=== PATIENT | female | born 1950 | race Caucasian/White ===

== ENCOUNTER 2022-04-24 08:36 | Inpatient (IN) ==
[2022-04-24] MEDS ORDERED: SODIUM CHLORIDE 0.9% 500 ML IV STA (08:48)
[2022-04-24] MEDS ORDERED: ALBUT/IPRATROP 3MG/0.5MG NEB 3 ML VIAL NEB ONE (08:48)
[2022-04-24] MEDS ORDERED: methylPREDNISolone 125 MG/2 ML VIAL IV STA (08:48)
--- NOTE | 2022-04-24 08:54 | Emergency Department Note ---
Impression & Plan COPD (chronic obstructive pulmonary disease), Acute respiratory acidosis ED Provider Note NAME: LARRY HARKINS AGE: 71 SEX: F : 1950 ARRIVES VIA: Walk-In INFORMANT: Patient, ED PROVIDER(S): Giovanni Murphy DO CHIEF COMPLAINT: Shortness of breath HPI: The patient is a 71-year-old female who has a history of COPD who presented to the emergency department for an evaluation of shortness of breath. The patient has been noticing increasing shortness of breath over the course of the last few days. She does have a history of COPD and states this feels similar to her previous COPD exacerbations. She does note that she has a cough but is nonproductive. She denies having any fever or chest pain. She denies having any orthopnea or lower extremity swelling. The patient has been taking her nebulizer treatments. This morning she took a longer than usual nebulizer treatment. She does take oral steroids chronically. She does admit to having some tobacco use recently but very little. She is often seen by her primary care physician for the symptoms. She has been using oxygen at home as normal and wears 2.5 L. She has had no recent trauma. She denies having any hemoptysis. She states symptoms are significantly worsened with any exertion. ROS: See above HPI for pertinent positives & negatives. A total of 10 systems reviewed and were otherwise negative. PAST MEDICAL HISTORY: See Below PAST SURGICAL HISTORY: See Below FAMILY HISTORY: See Below SOCIAL HISTORY: See Below HOME MEDICATIONS: See Below ALLERGIES: See Below VITALS: See Below PHYSICAL EXAMINATION: GENERAL: The patient is awake and alert. She is somewhat anxious appearing. EYES: The conjunctivae are clear. The pupils are round and reactive. EARS, NOSE, MOUTH AND THROAT: The nose is without any evidence of any deformity. NECK: The neck is nontender and supple. RESPIRATORY: Diminished breath sounds were noted throughout. Expiratory wheezing was noted in both upper lung st[place]. There is significant convers ational dyspnea as well as tachypnea. CARDIOVASCULAR: Regular rate and rhythm noted there no murmurs rubs or gallops normal S1 normal S2. GASTROINTESTINAL: The abdomen is soft. Abdomen is nontender. MUSCULOSKELETAL/EXTREMITIES: There is no evidence of gross deformity full range of motion is noted in the hips and shoulders. SKIN: There is no obvious evidence of any rash. There are no petechiae, pallor or cyanosis noted. NEUROLOGIC: Patient is awake alert and oriented x3 MEDICAL DECISION MAKING: The patient is a 71-year-old male who presented to the emergency department for an evaluation of shortness of breath. The patient is a history of COPD. Her history and physical exam appear to be consistent with a COPD exacerbation. The patient had very significant conversational dyspnea as well as tachypnea. She was treated with IV steroids and an hour-long nebulizer. Her symptoms significantly improved at rest but any exertion would make her severely short of breath. The patient does wear oxygen normally at home. She was reevaluated multiple times. I discussed her case with the on-call [facility] group. They have agreed to evaluate the patient in the emergency department for further management and disposition. Triage Nursing notes reviewed. Prior medical records reviewed Vital Signs: reviewed and remarkable for tachycardia. Differential diagnosis: Reactive airway disease, pneumonia, pneumothorax, COPD, CHF, infections, ca rdiac ischemia, pulmonary embolism, musculoskeletal, gastrointestinal, as well as other pathologies. ER treatment provided: See below Diagnostics interpreted by me: ECG: EKG was obtained in the emergency department. My interpretation is sinus rhythm at 96 bpm. PVCs were noted. No acute ST segment abnormalities were noted. This was compared to a tracing from February 14, 2022. The ectopy is new otherwise no significant changes were noted. Cardiac Monitoring: An order was placed for continuous cardiac monitoring. The monitor shows a rate of 122 bpm with sinus tachycardia. Laboratory studies: As stated above and show below. Imaging studies: See below Consultation(s): I discussed this case with Eliza who is on for the [facility] group. ED COURSE: Procedures: none Critical Care: I have personally spent greater than 45 minutes of critical care time in the direct management of this patient. This includes bedside care, interpretation of diagnostic studies, and testing, discussion with consultants, patient, and family members, and other required patient management activities. This 45 minutes is in excess of all separately billable procedures. Past Med/Surg History Medical History Blindness Chronic respiratory failure with hypoxia COPD (chronic obstructive pulmonary disease) Depression with anxiety History of tobacco use HTN (hypertension) Surgical History H/O tubal ligation History of cholecystectomy Family History Mother Coronary heart disease Depression Social History Smoking Status: Former smoker Tobacco Type: Cigarettes Hx Alcohol Use: No Hx Substance Use: No Preferred Language: Icelandic Communication Ability: Effective Crime Scene Analyst Required: No Beliefs That Will Affect Care: None Current Living Situation: Personal Care Facility Current Living Situation Comment: Assisted living Feels Safe at Home: Yes Assistive Devices: Hospital Bed, Oxygen - Continuous and Wheelchair Allergies Allergies Allergy/AdvReac Type Severity Reaction Status Date / Time kiwi Allergy Unknown Anaphylaxis Verified 04/24/22 10:08 Penicillins Allergy Unknown Anaphylaxis Verified 04/24/22 10:08 moxifloxacin Allergy dyspnea Verified 04/24/22 10:08 amlodipine AdvReac Unknown Muscle Pain Verified 04/24/22 10:08 furosemide [From Lasix] AdvReac Cramping Verified 04/24/22 10:08 of the Muscles lisinopril AdvReac Unknown Verified 04/24/22 10:08 propylene glycol AdvReac Rash Verified 04/24/22 10:08 [id number] Reductase AdvReac Muscle Pain Verified 04/24/22 10:08 Inhibitor Home Meds Home Medications Medication Instructions Recorded Confirmed albuterol sulfate 90 mcg/actuation 2 puff inhalation QID PRN 02/14/22 02/14/22 aerosol inhaler (Ventolin HFA) Shortness Of Breath Or Wheezing alprazolam 0.5 mg tablet 0.5 mg PO HS 02/14/22 02/14/22 alprazolam 0.5 mg tablet 0.5 mg PO QID PRN Anxiety 02/14/22 02/14/22 azithromycin 250 mg tablet 250 mg PO MOWEFR 02/14/22 02/14/22 budesonide 1 mg/2 mL suspension 1 mg inhalation BID 02/14/22 02/14/22 for nebulization docusate sodium 100 mg capsule 100 mg PO BID 02/14/22 02/14/22 (Colace) doxazosin 2 mg tablet 2 mg PO PM 02/14/22 02/14/22 fexofenadine 180 mg tablet 180 mg PO DAILY 02/14/22 02/14/22 ipratropium 20 mcg-albuterol 100 1 puff inhalation Q4H PRN 02/14/22 02/14/22 mcg/actuation mist for inhalation Shortness Of Breath Or Wheezing (Combivent Respimat) losartan 100 mg tablet 100 mg PO DAILY 02/14/22 02/14/22 montelukast 10 mg tablet 10 mg PO HS 02/14/22 02/14/22 nicotine 14 mg/24 hr daily 14 mg transdermal DAILY 02/14/22 02/14/22 transdermal patch sennosides 8.6 mg-docusate sodium 1 tab PO DAILY PRN Constipation 02/14/22 02/14/22 50 mg tablet (Senna Plus) Previous Rx's Medication Instructions Recorded ipratropium 0.5 mg-albuterol 3 mg 3 ml inhalation QID PRN sob, 02/20/22 (2.5 mg base)/3 mL nebulization wheezing #90 mL soln prednisone 10 mg tablet See Rx Instructions .Route 02/20/22 .COMPLEX 8 days #15 tabs umeclidinium 62.5 mcg-vilanterol 1 inh inhalation DAILY #60 ea 02/20/22 25 mcg/actuation powdr for inhalation (Anoro Ellipta) Results & Data (ED) Vital Signs Vital Signs - 24 hr 04/24/22 08:38 04/24/22 08:57 04/24/22 08:36 Temperature 36.7 C Temperature Source Temporal Artery Scan Pulse Rate 102 H Pulse Rate [Apical] 94 H Pulse Rate from SpO2 Sensor Respiratory Rate 24 22 Respiratory Effort / Characteristics Spontaneous Short of Breath Respiratory Depth Respiratory Pattern Blood Pressure 156/90 H Blood Pressure Mean 112 Pulse Oximetry 98 97 97 Oxygen Delivery Method Nasal Cannula Nasal Cannula Nasal Cannula Oxygen Flow Rate 2.5 2 4 Sepsis Recent Fever Within 48 Hours No Sepsis New/Unexplained Change in Mental Status N/A Sepsis Action Taken by Nursing No Action Required 04/24/22 09:19 04/24/22 08:51 04/24/22 08:53 Temperature Temperature Source Pulse Rate 95 H Pulse Rate [Apical] Pulse Rate from SpO2 Sensor 97 H Respiratory Rate 23 Respiratory Effort / Characteristics Spontaneous Labored Short of Breath SOB on Exertion Respiratory Depth Retractive Respiratory Pattern Tachypnea Blood Pressure 151/104 H Blood Pressure Mean 119 Pulse Oximetry 98 Oxygen Delivery Method Oxygen Flow Rate Sepsis Recent Fever Within 48 Hours Sepsis New/Unexplained Change in Mental Status Sepsis Action Taken by Nursing 04/24/22 08:53 04/24/22 09:00 04/24/22 09:30 Temperature Temperature Source Pulse Rate 95 H 94 H 93 H Pulse Rate [Apical] Pulse Rate from SpO2 Sensor 95 H 92 H 92 H Respiratory Rate 28 H 18 18 Respiratory Effort / Characteristics Respiratory Depth Respiratory Pattern Blood Pressure Blood Pressure Mean Pulse Oximetry 98 99 100 Oxygen Delivery Method Oxygen Flow Rate Sepsis Recent Fever Within 48 Hours Sepsis New/Unexplained Change in Mental Status Sepsis Action Taken by Nursing 04/24/22 09:46 04/24/22 09:46 04/24/22 10:00 Temperature Temperature Source Pulse Rate 93 H Pulse Rate [Apical] Pulse Rate from SpO2 Sensor 95 H Respiratory Rate 21 Respiratory Effort / Characteristics Respiratory Depth Respiratory Pattern Blood Pressure 159/76 H 155/86 H Blood Pressure Mean 103 109 Pulse Oximetry 100 Oxygen Delivery Method Oxygen Flow Rate Sepsis Recent Fever Within 48 Hours Sepsis New/Unexplained Change in Mental Status Sepsis Action Taken by Nursing 04/24/22 10:00 04/24/22 10:30 04/24/22 10:30 Temperature Temperature Source Pulse Rate 91 H 100 H Pulse Rate [Apical] Pulse Rate from SpO2 Sensor 99 H 100 H Respiratory Rate 21 19 Respiratory Effort / Characteristics Respiratory Depth Respiratory Pattern Blood Pressure 174/78 H Blood Pressure Mean 110 Pulse Oximetry 100 95 Oxygen Delivery Method Oxygen Flow Rate Sepsis Recent Fever Within 48 Hours Sepsis New/Unexplained Change in Mental Status Sepsis Action Taken by Nursing 04/24/22 11:00 04/24/22 12:00 04/24/22 13:00 Temperature Temperature Source Pulse Rate 95 H 111 H 112 H Pulse Rate [Apical] Pulse Rate from SpO2 Sensor 103 H 112 H 113 H Respiratory Rate 20 21 22 Respiratory Effort / Characteristics Respiratory Depth Respiratory Pattern Blood Pressure 136/92 Blood Pressure Mean 106 Pulse Oximetry 96 96 95 Oxygen Delivery Method Oxygen Flow Rate Sepsis Recent Fever Within 48 Hours Sepsis New/Unexplained Change in Mental Status Sepsis Action Taken by Nursing 04/24/22 14:00 Temperature Temperature Source Pulse Rate 122 H Pulse Rate [Apical] Pulse Rate from SpO2 Sensor Respiratory Rate 20 Respiratory Effort / Characteristics Respiratory Depth Respiratory Pattern Blood Pressure Blood Pressure Mean Pulse Oximetry Oxygen Delivery Method Oxygen Flow Rate Sepsis Recent Fever Within 48 Hours Sepsis New/Unexplained Change in Mental Status Sepsis Action Taken by Group Home Medications Current Medication List: was personally reviewed by me Laboratory Data Attestation: I reviewed the patient's lab results. Result diagrams: 04/24/22 09:00 04/24/22 09:00 Lab Results 04/24/22 04/24/22 04/24/22 Range/Units 09:00 09:00 09:00 WBC 9.62 (4.8-10.8) K/ul RBC 4.44 (3.93-5.22) M/uL Hgb 13.9 (12.0-16.0) g/dl Hct 41.4 (34.1-44.9) % MCV 93.2 (80.0-100.0) fL MCH 31.3 (25.0-34.0) pg MCHC 33.6 (32.0-36.0) g/dL RDW Std Deviation 44.1 (36.4-46.3) fL RDW Coeff of Carl 12.9 (11.5-14.5) % Plt Count 315 (130-400) K/uL MPV 9.7 (9.4-12.3) fL Immature Gran % (Auto) 0.4 % Neut % (Auto) 83.3 % Lymph % (Auto) 10.2 % [place] % (Auto) 4.7 % Eos % (Auto) 0.9 % Baso % (Auto) 0.5 % Neut # (Auto) 8.01 H (1.4-6.5) K/uL Lymph # (Auto) 0.98 L (1.2-3.4) K/uL [place] # (Auto) 0.45 (0.24-0.82) K/uL Eos # (Auto) 0.09 (0-0.50) K/uL Baso # (Auto) 0.05 (0-0.2) K/uL Immature Gran # (Auto) 0.04 H (0.00-0.02) K/uL PT 10.4 (9.0-12.0) Seconds INR 1.0 (0.9-1.1) APTT 24.0 (21.0-31.0) Seconds PTT Ratio 0.9 VBG pH (7.36-7.41) VBG pCO2 (38-50) mmHg VBG pO2 mmHg VBG HCO3 mmol/L VBG O2 Saturation % VBG Base Excess mEq/L Sodium 137 (136-145) mmol/L Potassium 3.7 (3.5-5.1) mmol/L Chloride 101 (98-107) mmol/L Carbon Dioxide 29 (21-32) mmol/L Anion Gap 7 (3-11) BUN 11 (6-23) mg/dl Creatinine 0.58 L (0.6-1.2) mg/dl Est Cr Clr Drug Dosing Not Reportable Est GFR ( Amer) 109.0 ml/min Est GFR (Non-Af Amer) 94.0 ml/min BUN/Creatinine Ratio 19.0 (10-20) Glucose 116 H (70-99(Fasting)) mg/dl Calcium 8.9 (8.5-10.1) mg/dl Magnesium 2.2 (1.7-2.4) mg/dl Total Bilirubin 0.4 (0.2-1.0) mg/dl AST 16 (13-39) U/L ALT 15 (7-52) U/L Alkaline Phosphatase 57 (34-104) U/L Troponin I High Sens 4.9 (0-14) pg/ml Total Protein 7.2 (6.0-8.3) gm/dl Albumin 4.3 (3.4-5.0) gm/dl Globulin 2.9 (2.5-4.0) gm/dl Albumin/Globulin Ratio 1.5 (0.9-2) Urine Color Urine Appearance (Clear) Urine pH (4.5-7.5) Ur Specific [place] (1.000-1.030) Urine Protein (Negative) Urine Glucose (UA) (Negative) Urine Ketones (Negative) Urine Blood (Negative) Urine Nitrite (Negative) Urine Bilirubin (Negative) Urine Urobilinogen (Negative) Ur Leukocyte Esterase (Negative) SARS-CoV-2 (PCR) (Negative) Influenza Type A (PCR) (Neg) Influenza Type B (PCR) (Neg) RSV (RT-PCR) (Neg) 04/24/22 04/24/22 04/24/22 Range/Units 09:00 09:36 10:01 WBC (4.8-10.8) K/ul RBC (3.93-5.22) M/uL Hgb (12.0-16.0) g/dl Hct (34.1-44.9) % MCV (80.0-100.0) fL MCH (25.0-34.0) pg MCHC (32.0-36.0) g/dL RDW Std Deviation (36.4-46.3) fL RDW Coeff of Carl (11.5-14.5) % Plt Count (130-400) K/uL MPV (9.4-12.3) fL Immature Gran % (Auto) % Neut % (Auto) % Lymph % (Auto) % [place] % (Auto) % Eos % (Auto) % Baso % (Auto) % Neut # (Auto) (1.4-6.5) K/uL Lymph # (Auto) (1.2-3.4) K/uL [place] # (Auto) (0.24-0.82) K/uL Eos # (Auto) (0-0.50) K/uL Baso # (Auto) (0-0.2) K/uL Immature Gran # (Auto) (0.00-0.02) K/uL PT (9.0-12.0) Seconds INR (0.9-1.1) APTT (21.0-31.0) Seconds PTT Ratio VBG pH 7.32 L (7.36-7.41) VBG pCO2 62 H (38-50) mmHg VBG pO2 40 mmHg VBG HCO3 32 mmol/L VBG O2 Saturation 64.5 % VBG Base Excess 4.0 mEq/L Sodium (136-145) mmol/L Potassium (3.5-5.1) mmol/L Chloride (98-107) mmol/L Carbon Dioxide (21-32) mmol/L Anion Gap (3-11) BUN (6-23) mg/dl Creatinine (0.6-1.2) mg/dl Est Cr Clr Drug Dosing Est GFR ( Amer) ml/min Est GFR (Non-Af Amer) ml/min BUN/Creatinine Ratio (10-20) Glucose (70-99(Fasting)) mg/dl Calcium (8.5-10.1) mg/dl Magnesium (1.7-2.4) mg/dl Total Bilirubin (0.2-1.0) mg/dl AST (13-39) U/L ALT (7-52) U/L Alkaline Phosphatase (34-104) U/L Troponin I High Sens (0-14) pg/ml Total Protein (6.0-8.3) gm/dl Albumin (3.4-5.0) gm/dl Globulin (2.5-4.0) gm/dl Albumin/Globulin Ratio (0.9-2) Urine Color Yellow Urine Appearance Clear (Clear) Urine pH 6.5 (4.5-7.5) Ur Specific [place] 1.006 (1.000-1.030) Urine Protein Negative (Negative) Urine Glucose (UA) Negative (Negative) Urine Ketones Negative (Negative) Urine Blood Negative (Negative) Urine Nitrite Negative (Negative) Urine Bilirubin Negative (Negative) Urine Urobilinogen Negative (Negative) Ur Leukocyte Esterase Negative (Negative) SARS-CoV-2 (PCR) NEGATIVE (Negative) Influenza Type A (PCR) Negative (Neg) Influenza Type B (PCR) Negative (Neg) RSV (RT-PCR) Negative (Neg) Administered Medications Discontinued Medications Albuterol (Albut/Ipratrop 3mg/0.5mg Neb 3 Ml Vial) 12 ml NEB ONE ONE; Protocol Stop: 04/24/22 08:49 Last Admin: 04/24/22 08:56 Dose: 12 ml Documented By: EM Sodium Chloride (Nss) 500 mls @ 999 mls/hr IV .Q31M STA Stop: 04/24/22 09:18 Last Infusion: 04/24/22 09:32 Dose: 0 mls/hr Documented By: Admin: 04/24/22 09:01 Dose: 999 mls/hr Documented By: HS Levalbuterol HCl (Levalbuterol 1.25mg/0.5ml Neb) Confirm Administered Dose 1.25 mg .ROUTE .STK-MED ONE Stop: 04/24/22 14:08 Last Admin: 04/24/22 14:13 Dose: 1.25 mg Documented By: RDD Methylprednisolone (Methylprednisolone 125 Mg/2 Ml Vial) 125 mg IV NOW STA Stop: 04/24/22 08:49 Last Admin: 04/24/22 09:01 Dose: 125 mg Documented By: HS Imaging Data Radiologist's Impression: Chest X-Ray 04/24/22 08:48 XR chest 1V portable HISTORY: Dyspnea COMPARISON: Chest 02/14/2022. FINDINGS: No pneumothorax. No pleural effusions. The cardiac silhouette remains borderline enlarged. There is mild bibasilar interstitial thickening. The upper lung zones appear clear. No evidence for pulmonary edema. There appears be mild emphysema. IMPRESSION: Mild bibasilar interstitial thickening which is similar to the prior study. This could be chronic or represent a low-grade interstitial pneumonitis. ACT 112: Negative or not required by law. Electronically signed by: Yunier Alves M.D. 04/24/2022 9:28 AM Discharge Plan Visit Data Chief Complaint: Shortness of Breath/Dyspnea Stated Complaint: TROUBLE BREATHING ED Provider: Giovanni Murphy Discharge Problem: COPD (chronic obstructive pulmonary disease), Acute respiratory acidosis Patient Disposition: Being Evaluated by Hospitalist Forms Stand Alone Forms: My [facility] [employer] Prescriptions Prescriptions: No Action nicotine 14 mg/24 hr patch 24 hour 14 mg transdermal DAILY azithromycin 250 mg tablet 250 mg PO MOWEFR sennosides-docusate sodium [Senna Plus] 8.6-50 mg tablet 1 tab PO DAILY PRN (Reason: Constipation) alprazolam 0.5 mg tablet 0.5 mg PO QID PRN (Reason: Anxiety) alprazolam 0.5 mg tablet 0.5 mg PO HS docusate sodium [Colace] 100 mg capsule 100 mg PO BID montelukast 10 mg tablet 10 mg PO HS albuterol sulfate [Ventolin HFA] 90 mcg/actuation HFA aerosol inhaler 2 puff INHALATION QID PRN (Reason: Shortness Of Breath Or Wheezing) losartan 100 mg tablet 100 mg PO DAILY doxazosin 2 mg tablet 2 mg PO PM budesonide 1 mg/2 mL suspension for nebulization 1 mg inhalation BID Combivent Respimat 20-100 mcg/actuation mist 1 puff INHALATION Q4H PRN (Reason: Shortness Of Breath Or Wheezing) fexofenadine 180 mg Tablet 180 mg PO DAILY Anoro Ellipta 62.5-25 mcg/actuation blister with device 1 inh inhalation DAILY Qty: 60 0RF prednisone 10 mg tablet See Rx Instructions .ROUTE .COMPLEX 8 Days Qty: 15 0RF Rx Instructions: 40 mg daily x 2 days, then 20 mg daily x 3 days, then 10 mg daily x 3 days, then stop ipratropium-albuterol 0.5 mg-3 mg(2.5 mg base)/3 mL solution for nebulization 3 ml INHALATION QID PRN (Reason: sob, wheezing) Qty: 90 0RF [facility]errals [facility] -
[2022-04-24 09:12] LABS: Basophils # (auto) 0.05 K/uL (0-0.2); Basophils % (auto) 0.5 %; Eosinophils # (auto) 0.09 K/uL (0-0.50); Eosinophils % (auto) 0.9 %; Hematocrit (blood only) 41.4 % (34.1-44.9); Hemoglobin 13.9 g/dl (12.0-16.0); Immature Granulocytes # (auto) 0.04 K/uL (0.00-0.02); Immature Granulocytes % (auto) 0.4 %; Lymphocytes # (auto) 0.98 K/uL (1.2-3.4); Lymphocytes % (auto) 10.2 %; Mean Corpuscular Hemoglobin 31.3 pg (25.0-34.0); Mean Corpuscular Hgb Conc 33.6 g/dL (32.0-36.0); Mean Corpuscular Volume 93.2 fL (80.0-100.0); Mean Platelet Volume 9.7 fL (9.4-12.3); Monocytes # (auto) 0.45 K/uL (0.24-0.82); Monocytes % (auto) 4.7 %; Neutrophils # (auto) 8.01 K/uL (1.4-6.5); Neutrophils % (auto) 83.3 %; Platelet Count 315 K/uL (130-400); RDW Coefficient of Variation 12.9 % (11.5-14.5); RDW Standard Deviation 44.1 fL (36.4-46.3); Red Blood Count 4.44 M/uL (3.93-5.22); White Blood Count 9.62 K/ul (4.8-10.8)
[2022-04-24 09:23] LABS: Partial Thromboplastin Ratio 0.9; Prothrombin Time 10.4 Seconds (9.0-12.0)
--- NOTE | 2022-04-24 09:30 | XRay Report ---
XR chest 1V portable HISTORY: Dyspnea COMPARISON: Chest 02/14/2022. FINDINGS: No pneumothorax. No pleural effusions. The cardiac silhouette remains borderline enlarged. There is mild bibasilar interstitial thickening. The upper lung zones appear clear. No evidence for p ulmonary edema. There appears be mild emphysema. IMPRESSION: Mild bibasilar interstitial thickening which is similar to the prior study. This could be chronic or represent a low-grade interstitial pneumonitis. ACT 112: Negative or not required by law. Electronically signed by: Yunier Alves M.D. 04/24/2022 9:28 AM
[2022-04-24 09:36] LABS: Alanine Aminotransferase 15 U/L (7-52); Albumin Globulin Ratio 1.5 (0.9-2); Albumin Level 4.3 gm/dl (3.4-5.0); Alkaline Phosphatase 57 U/L (34-104); Anion Gap 7 (3-11); Aspartate Aminotransferase 16 U/L (13-39); Bilirubin,Total 0.4 mg/dl (0.2-1.0); Blood Urea Nitrogen 11 mg/dl (6-23); Calcium 8.9 mg/dl (8.5-10.1); Carbon Dioxide 29 mmol/L (21-32); Chloride 101 mmol/L (98-107); Globulin 2.9 gm/dl (2.5-4.0); Glucose 116 mg/dl (70-99(Fasting)); Magnesium 2.2 mg/dl (1.7-2.4); Potassium 3.7 mmol/L (3.5-5.1); Sodium 137 mmol/L (136-145); Total Protein 7.2 gm/dl (6.0-8.3)
[2022-04-24 09:40] LABS: Troponin I High Sensitivity 4.9 pg/ml (0-14)
[2022-04-24 10:05] LABS: HCO3 VBG 32 mmol/L; Oxygen Saturation VBG 64.5 %; PCO2 VBG 62 mmHg (38-50); PO2 VBG 40 mmHg; pH VBG 7.32 (7.36-7.41)
[2022-04-24 10:08] LABS: Influenza A virus by PCR Negative (Neg); Influenza B virus by PCR Negative (Neg); RSV by PCR Negative (Neg); SARS CoV2 RNA(COVID-19) InHosp NEGATIVE (Negative)
[2022-04-24 10:22] LABS: Appearance Urine Clear (Clear); Bilirubin Urine Negative (Negative); Blood Urine Negative (Negative); Color Urine Yellow; Glucose Urine UA Negative (Negative); Ketones Urine Negative (Negative); Leukocyte Esterase Urine Negative (Negative); Nitrite Urine Negative (Negative); Protein Urine Negative (Negative); Specific Gravity Urine 1.006 (1.000-1.030); Urobilinogen Urine Negative (Negative); pH Urine 6.5 (4.5-7.5)
[2022-04-24] MEDS ORDERED: ACETAMINOPHEN 325 MG TAB PO PRN (12:19)
--- NOTE | 2022-04-24 12:25 | History & Physical Report ---
Date of Service April 24, 2022 Assessment & Plan (1) Chronic respiratory failure with hypoxia: (2) COPD (chronic obstructive pulmonary disease): (3) Acute exacerbation of chronic obstructive airways disease: Plan: Hx of severe COPD last hospitalization in January 2022 Since then did not follow up w/ pulmonary medicine At baseline - 2.5L of oxygen, and currently also on 2.5 L- however she feels short of breath for past week COVID-19, influenza AB, RSVnegative Patient had 2 COVID-19 vaccinations, no booster Using prednisone 10 mg daily, azithromycin 3 times a week, Anoro, budesonide neb twice a day Hold p.o. prednisone, and continue with Solu-Medrol IV 40 twice daily Continue other home meds as above, add levalbuterol as needed Follow-up procalcitonin If not improved, consider pulmonary medicine consult (4) HTN (hypertension): Plan: cont. home losartan, doxazosin -monitor BP Code: DNR/DNI - discussed w/ the pt at the bedside. She would like bipap if she needed it. History of Present Illness Chief Complaint: shortness of breath Primary Care Provider: [facility] Pt is 71-year-old F with severe COPD, asthma, chronic hypoxic respiratory failure (on 2.5L at baseline), HTN, prior tobacco who presents with increased shortness of breath for the past week. Patient was most recently hospitalized here in January, at that time she was also seen by pulmonary medicine, required BiPAP on admission. She was supposed to follow-up with pulmonary medicine however patient [facility], only sees primary care provider at her facility, Annabel Calvert. She states that for the past week, her medications were not helping and she felt more short of breath. She developed occasional cough with clear/white sputum. Denies any fevers chills chest pain. Also denies any abdominal pain, nausea or vomiting. In the ED chest x-ray was obtained, and showed Mild bibasilar interstitial thickening which is similar to the prior study. She received 125 mg of Solu- Medrol, DuoNebs in the ED. Currently she is sitting up in bed, in no acute distress, answering questions appropriately, on 2.5 L of supplemental oxygen. Reports feeling slightly better. In the past she was also on hospice for a very short amount of time, however since then she recovered. Currently residing at [facility]. She is using budesonide neb twice a day, Anoro, she is on prednisone 10 mg daily, and chronic azithromycin 3 times a week.Previously had followed up with pulmonology at [facility], she has not been seen there in a while. She reports having difficulty getting follow-up appointments. Allergies Allergy/AdvReac Type Severity Reaction Status Date / Time kiwi Allergy Unknown Anaphylaxis Verified 04/24/22 10:08 Penicillins Allergy Unknown Anaphylaxis Verified 04/24/22 10:08 moxifloxacin Allergy dyspnea Verified 04/24/22 10:08 amlodipine AdvReac Unknown Muscle Pain Verified 04/24/22 10:08 furosemide [From Lasix] AdvReac Cramping Verified 04/24/22 10:08 of the Muscles lisinopril AdvReac Unknown Verified 04/24/22 10:08 propylene glycol AdvReac Rash Verified 04/24/22 10:08 [id number] Reductase AdvReac Muscle Pain Verified 04/24/22 10:08 Inhibitor Home Medications Medication Instructions Recorded Confirmed Type albuterol sulfate 90 mcg/actuation 2 puff inhalation QID PRN 02/14/22 02/14/22 History aerosol inhaler (Ventolin HFA) Shortness Of Breath Or Wheezing alprazolam 0.5 mg tablet 0.5 mg PO HS 02/14/22 02/14/22 History alprazolam 0.5 mg tablet 0.5 mg PO QID PRN Anxiety 02/14/22 02/14/22 History azithromycin 250 mg tablet 250 mg PO MOWEFR 02/14/22 02/14/22 History budesonide 1 mg/2 mL suspension 1 mg inhalation BID 02/14/22 02/14/22 History for nebulization docusate sodium 100 mg capsule 100 mg PO BID 02/14/22 02/14/22 History (Colace) doxazosin 2 mg tablet 2 mg PO PM 02/14/22 02/14/22 History fexofenadine 180 mg tablet 180 mg PO DAILY 02/14/22 02/14/22 History ipratropium 20 mcg-albuterol 100 1 puff inhalation Q4H PRN 02/14/22 02/14/22 History mcg/actuation mist for inhalation Shortness Of Breath Or Wheezing (Combivent Respimat) losartan 100 mg tablet 100 mg PO DAILY 02/14/22 02/14/22 History montelukast 10 mg tablet 10 mg PO HS 02/14/22 02/14/22 History nicotine 14 mg/24 hr daily 14 mg transdermal DAILY 02/14/22 02/14/22 History transdermal patch sennosides 8.6 mg-docusate sodium 1 tab PO DAILY PRN Constipation 02/14/22 02/14/22 History 50 mg tablet (Senna Plus) ipratropium 0.5 mg-albuterol 3 mg 3 ml inhalation QID PRN sob, 02/20/22 02/14/22 Rx (2.5 mg base)/3 mL nebulization wheezing #90 mL soln prednisone 10 mg tablet See Rx Instructions .Route 02/20/22 02/14/22 Rx .COMPLEX 8 days #15 tabs umeclidinium 62.5 mcg-vilanterol 1 inh inhalation DAILY #60 ea 02/20/22 Rx 25 mcg/actuation powdr for inhalation (Anoro Ellipta) Past Med/Surg History Medical History Blindness Chronic respiratory failure with hypoxia COPD (chronic obstructive pulmonary disease) Depression with anxiety History of tobacco use HTN (hypertension) Surgical History H/O tubal ligation History of cholecystectomy Family History Mother Coronary heart disease Depression Social History Smoking Status: Former smoker Tobacco Type: Cigarettes Hx Alcohol Use: No Hx Substance Use: No Preferred Language: [place] Communication Ability: Effective Hand Etcher Required: No Beliefs That Will Affect Care: None Current Living Situation: Personal Care Facility Current Living Situation Comment: Assisted living Feels Safe at Home: Yes Assistive Devices: Hospital Bed, Oxygen - Continuous and Wheelchair Review of Systems Review of Systems: All systems reviewed & are unremarkable except as noted in HPI & below Physical Exam Constitutional: WD/WN, vitals as above Eyes: PERRL, conjunctivae normal, anicteric sclerae (L eye blindness) ENMT: external ear and nose normal, oropharynx normal Neck: trachea midline, no thyromegaly Respiratory: Auscultation: + rhonchi (minimal) and + wheezes (minimal); no crackles Cardiovascular: Rate/Rhythm: + tachycardic Chest (Breasts): Chest: normal inspection of chest Gastrointestinal (Abdomen): normal bowel sounds, soft, nontender, no hepatosplenomegaly Musculoskeletal: no cyanosis or clubbing, extremities motor strength 5/5 Skin: no rashes, warm and dry Neurologic: PERRL, EOMI, accommodation nl, no face palsy, no dysarthria (except for L eye blindness) Psychiatric: A+Ox3, euthymic affect Genitourinary: no CVA tenderness Lymphatic: no lymphedema Results & Data Results & Data ([facility]) Vital Signs (Past 12 Hours) Vital Signs Temp Pulse Pulse Resp BP Pulse Ox O2 Del Method 04/24/22 10:00 91 H 21 100 04/24/22 10:00 155/86 H 04/24/22 09:46 93 H 21 100 04/24/22 09:46 159/76 H 04/24/22 09:30 93 H 18 100 04/24/22 09:00 94 H 18 99 04/24/22 08:53 95 H 28 H 98 04/24/22 08:53 151/104 H 04/24/22 08:51 95 H 23 98 04/24/22 08:36 97 Nasal Cannula 04/24/22 08:57 94 H 22 97 Nasal Cannula 04/24/22 08:38 36.7 C 102 H 24 156/90 H 98 Nasal Cannula O2 Flow Rate 04/24/22 10:00 04/24/22 10:00 04/24/22 09:46 04/24/22 09:46 04/24/22 09:30 04/24/22 09:00 04/24/22 08:53 04/24/22 08:53 04/24/22 08:51 04/24/22 08:36 4 04/24/22 08:57 2 04/24/22 08:38 2.5 Laboratory Results 04/24/22 04/24/22 04/24/22 Range/Units 10:01 09:36 09:00 WBC (4.8-10.8) K/ul RBC (3.93-5.22) M/uL Hgb (12.0-16.0) g/dl Hct (34.1-44.9) % MCV (80.0-100.0) fL MCH (25.0-34.0) pg MCHC (32.0-36.0) g/dL RDW Std Deviation (36.4-46.3) fL RDW Coeff of Carl (11.5-14.5) % Plt Count (130-400) K/uL MPV (9.4-12.3) fL Immature Gran % (Auto) % Neut % (Auto) % Lymph % (Auto) % [place] % (Auto) % Eos % (Auto) % Baso % (Auto) % Neut # (Auto) (1.4-6.5) K/uL Lymph # (Auto) (1.2-3.4) K/uL [place] # (Auto) (0.24-0.82) K/uL Eos # (Auto) (0-0.50) K/uL Baso # (Auto) (0-0.2) K/uL Immature Gran # (Auto) (0.00-0.02) K/uL PT (9.0-12.0) Seconds INR (0.9-1.1) APTT (21.0-31.0) Seconds PTT Ratio VBG pH 7.32 L (7.36-7.41) VBG pCO2 62 H (38-50) mmHg VBG pO2 40 mmHg VBG HCO3 32 mmol/L VBG O2 Saturation 64.5 % VBG Base Excess 4.0 mEq/L Sodium (136-145) mmol/L Potassium (3.5-5.1) mmol/L Chloride (98-107) mmol/L Carbon Dioxide (21-32) mmol/L Anion Gap (3-11) BUN (6-23) mg/dl Creatinine (0.6-1.2) mg/dl Est Cr Clr Drug Dosing Est GFR ( Amer) ml/min Est GFR (Non-Af Amer) ml/min BUN/Creatinine Ratio (10-20) Glucose (70-99(Fasting)) mg/dl Calcium (8.5-10.1) mg/dl Magnesium (1.7-2.4) mg/dl Total Bilirubin (0.2-1.0) mg/dl AST (13-39) U/L ALT (7-52) U/L Alkaline Phosphatase (34-104) U/L Troponin I High Sens (0-14) pg/ml Total Protein (6.0-8.3) gm/dl Albumin (3.4-5.0) gm/dl Globulin (2.5-4.0) gm/dl Albumin/Globulin Ratio (0.9-2) Urine Color Yellow Urine Appearance Clear (Clear) Urine pH 6.5 (4.5-7.5) Ur Specific [place] 1.006 (1.000-1.030) Urine Protein Negative (Negative) Urine Glucose (UA) Negative (Negative) Urine Ketones Negative (Negative) Urine Blood Negative (Negative) Urine Nitrite Negative (Negative) Urine Bilirubin Negative (Negative) Urine Urobilinogen Negative (Negative) Ur Leukocyte Esterase Negative (Negative) SARS-CoV-2 (PCR) NEGATIVE (Negative) Influenza Type A (PCR) Negative (Neg) Influenza Type B (PCR) Negative (Neg) RSV (RT-PCR) Negative (Neg) 04/24/22 04/24/22 04/24/22 Range/Units 09:00 09:00 09:00 WBC 9.62 (4.8-10.8) K/ul RBC 4.44 (3.93-5.22) M/uL Hgb 13.9 (12.0-16.0) g/dl Hct 41.4 (34.1-44.9) % MCV 93.2 (80.0-100.0) fL MCH 31.3 (25.0-34.0) pg MCHC 33.6 (32.0-36.0) g/dL RDW Std Deviation 44.1 (36.4-46.3) fL RDW Coeff of Carl 12.9 (11.5-14.5) % Plt Count 315 (130-400) K/uL MPV 9.7 (9.4-12.3) fL Immature Gran % (Auto) 0.4 % Neut % (Auto) 83.3 % Lymph % (Auto) 10.2 % [place] % (Auto) 4.7 % Eos % (Auto) 0.9 % Baso % (Auto) 0.5 % Neut # (Auto) 8.01 H (1.4-6.5) K/uL Lymph # (Auto) 0.98 L (1.2-3.4) K/uL [place] # (Auto) 0.45 (0.24-0.82) K/uL Eos # (Auto) 0.09 (0-0.50) K/uL Baso # (Auto) 0.05 (0-0.2) K/uL Immature Gran # (Auto) 0.04 H (0.00-0.02) K/uL PT 10.4 (9.0-12.0) Seconds INR 1.0 (0.9-1.1) APTT 24.0 (21.0-31.0) Seconds PTT Ratio 0.9 VBG pH (7.36-7.41) VBG pCO2 (38-50) mmHg VBG pO2 mmHg VBG HCO3 mmol/L VBG O2 Saturation % VBG Base Excess mEq/L Sodium 137 (136-145) mmol/L Potassium 3.7 (3.5-5.1) mmol/L Chloride 101 (98-107) mmol/L Carbon Dioxide 29 (21-32) mmol/L Anion Gap 7 (3-11) BUN 11 (6-23) mg/dl Creatinine 0.58 L (0.6-1.2) mg/dl Est Cr Clr Drug Dosing Not Reportable Est GFR ( Amer) 109.0 ml/min Est GFR (Non-Af Amer) 94.0 ml/min BUN/Creatinine Ratio 19.0 (10-20) Glucose 116 H (70-99(Fasting)) mg/dl Calcium 8.9 (8.5-10.1) mg/dl Magnesium 2.2 (1.7-2.4) mg/dl Total Bilirubin 0.4 (0.2-1.0) mg/dl AST 16 (13-39) U/L ALT 15 (7-52) U/L Alkaline Phosphatase 57 (34-104) U/L Troponin I High Sens 4.9 (0-14) pg/ml Total Protein 7.2 (6.0-8.3) gm/dl Albumin 4.3 (3.4-5.0) gm/dl Globulin 2.9 (2.5-4.0) gm/dl Albumin/Globulin Ratio 1.5 (0.9-2) Urine Color Urine Appearance (Clear) Urine pH (4.5-7.5) Ur Specific [place] (1.000-1.030) Urine Protein (Negative) Urine Glucose (UA) (Negative) Urine Ketones (Negative) Urine Blood (Negative) Urine Nitrite (Negative) Urine Bilirubin (Negative) Urine Urobilinogen (Negative) Ur Leukocyte Esterase (Negative) SARS-CoV-2 (PCR) (Negative) Influenza Type A (PCR) (Neg) Influenza Type B (PCR) (Neg) RSV (RT-PCR) (Neg) Diagnostic Findings CXR FINDINGS: No pneumothorax. No pleural effusions. The cardiac silhouette remains borderline enlarged. There is mild bibasilar interstitial thickening. The upper lung zones appear clear. No evidence for pulmonary edema. There appears be mild emphysema. IMPRESSION: Mild bibasilar interstitial thickening which is similar to the prior study. This could be chronic or represent a low-grade interstitial pneumonitis. Code Status & VTE Plan VTE Prophylaxis Plan VTE Prophylaxis will be ordered: Yes
[2022-04-24] MEDS ORDERED: DOCUSATE SODIUM/SENNA 50/8.6MG TAB PO PRN (12:27)
[2022-04-24] MEDS ORDERED: LEVALBUTEROL 1.25MG/0.5ML NEB ONE (14:07)
[2022-04-24] MEDS ORDERED: methylPREDNISolone 40 MG in DEXTROSE 5% 250 ML IV STA (15:35)
[2022-04-24] MEDS: LEVALBUTEROL 1.25MG/0.5ML NEB NEB PRN (16:38)
[2022-04-24] MEDS ORDERED: BUDESONIDE 0.5 MG/2 ML VIAL (PULMICORT) INH SCH (19:00)
[2022-04-24] MEDS: HEPARIN SOD 5,000 UNIT/0.5 ML VIAL SQ SCH (20:21)
[2022-04-24] MEDS: DOCUSATE SODIUM 100 MG CAP PO SCH (20:21)
[2022-04-24] MEDS: DOXAZosin MESYLATE TAB 2 MG TAB PO SCH (20:22)
[2022-04-24] MEDS: MONTELUKAST SODIUM 10 MG TABLET PO SCH (20:23)
[2022-04-24] MEDS: methylPREDNISolone 40 MG in SYRINGE 0 ML IV SCH (20:24)
[2022-04-24] MEDS ORDERED: LEVALBUTEROL HCL 1.25 MG/3 ML NEB ONE (20:33)
[2022-04-24] MEDS ORDERED: LORazepam 0.5 MG TAB PO STA (21:34)
--- NOTE | 2022-04-24 21:35 | Electrocardiogram Report ---
Test Reason : Blood Pressure : / mmHG Vent. Rate : 096 BPM Atrial Rate : 096 BPM P-R Int : 162 ms QRS Dur : 088 ms QT Int : 350 ms P-R-T Axes : 081 062 077 degrees QTc Int : 442 ms Sinus rhythm with Premature ventricular complexes Biatrial enlargement Abnormal ECG When compared with ECG of 14-FEB-2022 11:31, Premature ventricular complexes are now Present Confirmed by Earl Justice ([id number]) on 04/24/2022 9:34:53 PM Referred By: Confirmed By:Earl Justice
[2022-04-24] MEDS: BUDESONIDE 0.5 MG/2 ML VIAL (PULMICORT) INH SCH (22:00)
[2022-04-25] MEDS: LEVALBUTEROL 1.25MG/0.5ML NEB NEB PRN (02:27)
[2022-04-25 05:59] LABS: Hematocrit (blood only) 37.1 % (34.1-44.9); Hemoglobin 12.7 g/dl (12.0-16.0); Mean Corpuscular Hemoglobin 31.1 pg (25.0-34.0); Mean Corpuscular Hgb Conc 34.2 g/dL (32.0-36.0); Mean Corpuscular Volume 90.9 fL (80.0-100.0); Mean Platelet Volume 9.5 fL (9.4-12.3); Platelet Count 309 K/uL (130-400); RDW Coefficient of Variation 12.8 % (11.5-14.5); RDW Standard Deviation 42.8 fL (36.4-46.3); Red Blood Count 4.08 M/uL (3.93-5.22); White Blood Count 11.66 K/ul (4.8-10.8)
[2022-04-25 06:21] LABS: BUN Creatinine Ratio 24.5 (10-20); Calcium 8.7 mg/dl (8.5-10.1); Creatinine Clr Calc Pharmacy 101.6 ml/min; Est GFR (African American) 112.3 ml/min; Est GFR (Non-African American) 96.9 ml/min; Magnesium 2.3 mg/dl (1.7-2.4); Phosphorus 3.6 mg/dl (2.5-4.9); Potassium 4.1 mmol/L (3.5-5.1)
[2022-04-25] MEDS: BUDESONIDE 0.5 MG/2 ML VIAL (PULMICORT) INH SCH ×2 (07:00→19:23)
[2022-04-25] MEDS ORDERED: LEVALBUTEROL HCL 1.25 MG/3 ML NEB ONE (07:03)
[2022-04-25] MEDS: methylPREDNISolone 40 MG in SYRINGE 0 ML IV SCH ×2 (08:22→20:11)
[2022-04-25] MEDS: DOCUSATE SODIUM 100 MG CAP PO SCH ×2 (08:24→20:10)
[2022-04-25] MEDS: ADVANCED PROBIOTIC 1250 MG CAPSULE PO SCH (08:24)
[2022-04-25] MEDS: LOSARTAN POTASSIUM 50 MG TAB PO SCH (08:24)
[2022-04-25] MEDS: FEXOFENADINE HCL 180 MG TAB PO SCH (08:25)
[2022-04-25] MEDS: HEPARIN SOD 5,000 UNIT/0.5 ML VIAL SQ SCH ×2 (08:28→20:11)
[2022-04-25] MEDS ORDERED: ALBUT/IPRATROP 3MG/0.5MG NEB 3 ML VIAL NEB ONE (08:39)
[2022-04-25] MEDS ORDERED: AZITHROMYCIN 250 MG TAB PO SCH (09:00)
[2022-04-25] MEDS ORDERED: UMECLIDINIUM/VILANTEROL 62.5/25MCG 7 PUFFS/INHALER INH SCH (09:00)
[2022-04-25] MEDS: FLUTICASONE/VILANTEROL 200/25MCG 14 PUFFS/INHALER INH SCH (09:30)
[2022-04-25] MEDS: NICOTINE 14 MG/24 HR PATCH TD SCH (14:13)
--- NOTE | 2022-04-25 14:45 | Hospitalist Progress Note ---
Date of Service April 25, 2022 Assessment & Plan (1) COPD (chronic obstructive pulmonary disease): (2) Acute exacerbation of chronic obstructive airways disease: Plan: Hx of severe COPD last hospitalization in January 2022 Since then did not follow up w/ pulmonary medicine Pro-Ron is 0.05 Plan; Continue on [id number] duo nebs every 4 hours. Titrate oxygen to maintain saturation at 88 to 92% Continue on inhaled corticosteroids. Continue on methylprednisolone 40 mg twice daily. Plan to switch to prednisone 40 mg twice daily tomorrow AM for 4 more days. Then switch to 10 mg prednisone. She will need pulmonology follow-u p as outpatient. (3) Chronic respiratory failure with hypoxia: Plan: Secondary to COPD (4) HTN (hypertension): Plan: cont. home losartan, doxazosin -monitor BP Code: DNR/DNI - discussed w/ the pt at the bedside. She would like bipap if she needed it. Admission and Anticipated Discharge Date Admission Date: April 24, 2022 Subjective Seen and examined at bedside at the morning and afternoon. She was in respiratory distress; difficulty completing her sentence. 1 hour of DuoNeb ordered and patient was placed on every 4 hours of DuoNeb. She was again seen in the afternoon; was comfortable. She stated that her breathing is much better. Review of Systems Review of Systems: All systems reviewed & are unremarkable except as noted in Subjective Physical Exam Physical Exam: Constitutional: WD/WN, vitals as above, NAD, sitting up in bed, pleasant, conversing easily Neck: trachea midline, no thyromegaly normal visual inspection Respiratory: Decreased air entry bilaterally and wheeze present. Cardiovascular: RRR, no murmur, no edema Vessels: no JVD or carotid bruit Chest: normal inspection of chest Abdomen: normal bowel sounds, soft, nontender, no hepatosplenomegaly Musculoskeletal: no cyanosis or clubbing, extremities motor strength 5/5 Skin: no rashes, warm and dry normal turgor Neurologic: PERRL, EOMI, accommodation nl, no face palsy, no dysarthria CN's II- XI intact bilaterally and moves all extremities Psychiatric: A+Ox3, euthymic affect Lymphatic: no cervical or axillary lymphadenopathy : deferred Results & Data Results & Data ([facility]) Vital Signs (Past 12 Hours) Vital Signs Temp Pulse Pulse Pulse Resp BP Pulse Ox 04/25/22 11:07 92 H 04/25/22 11:05 04/25/22 10:53 36.6 C 104 H 20 152/71 H 99 04/25/22 09:07 95 H 19 96 04/25/22 07:00 95 H 20 94 04/25/22 06:36 36.6 C 92 H 20 137/71 92 04/25/22 03:38 36.4 C L 97 H 18 135/61 97 O2 Del Method O2 Flow Rate 04/25/22 11:07 04/25/22 11:05 Nasal Cannula 2.5 04/25/22 10:53 04/25/22 09:07 Room Air 04/25/22 07:00 Nasal Cannula 2.5 04/25/22 06:36 Nasal Cannula 2.5 04/25/22 03:38 Nasal Cannula 2.5 Laboratory Results Laboratory Results WBC 11.66 K/ul (4.8-10.8) H 04/25/22 05:40 RBC 4.08 M/uL (3.93-5.22) 04/25/22 05:40 Hgb 12.7 g/dl (12.0-16.0) 04/25/22 05:40 Hct 37.1 % (34.1-44.9) 04/25/22 05:40 MCV 90.9 fL (80.0-100.0) 04/25/22 05:40 MCH 31.1 pg (25.0-34.0) 04/25/22 05:40 MCHC 34.2 g/dL (32.0-36.0) 04/25/22 05:40 RDW Std Deviation 42.8 fL (36.4-46.3) 04/25/22 05:40 RDW Coeff of Carl 12.8 % (11.5-14.5) 04/25/22 05:40 Plt Count 309 K/uL (130-400) 04/25/22 05:40 MPV 9.5 fL (9.4-12.3) 04/25/22 05:40 Immature Gran % (Auto) 0.4 % 04/24/22 09:00 Neut % (Auto) 83.3 % 04/24/22 09:00 Lymph % (Auto) 10.2 % 04/24/22 09:00 [place] % (Auto) 4.7 % 04/24/22 09:00 Eos % (Auto) 0.9 % 04/24/22 09:00 Baso % (Auto) 0.5 % 04/24/22 09:00 Neut # (Auto) 8.01 K/uL (1.4-6.5) H 04/24/22 09:00 Lymph # (Auto) 0.98 K/uL (1.2-3.4) L 04/24/22 09:00 [place] # (Auto) 0.45 K/uL (0.24-0.82) 04/24/22 09:00 Eos # (Auto) 0.09 K/uL (0-0.50) 04/24/22 09:00 Baso # (Auto) 0.05 K/uL (0-0.2) 04/24/22 09:00 Immature Gran # (Auto) 0.04 K/uL (0.00-0.02) H 04/24/22 09:00 PT 10.4 Seconds (9.0-12.0) 04/24/22 09:00 INR 1.0 (0.9-1.1) 04/24/22 09:00 APTT 24.0 Seconds (21.0-31.0) 04/24/22 09:00 PTT Ratio 0.9 04/24/22 09:00 VBG pH 7.32 (7.36-7.41) L 04/24/22 09:36 VBG pCO2 62 mmHg (38-50) H 04/24/22 09:36 VBG pO2 40 mmHg 04/24/22 09:36 VBG HCO3 32 mmol/L 04/24/22 09:36 VBG O2 Saturation 64.5 % 04/24/22 09:36 VBG Base Excess 4.0 mEq/L 04/24/22 09:36 Sodium 138 mmol/L (136-145) 04/25/22 05:40 Potassium 4.1 mmol/L (3.5-5.1) 04/25/22 05:40 Chloride 105 mmol/L (98-107) 04/25/22 05:40 Carbon Dioxide 31 mmol/L (21-32) 04/25/22 05:40 Anion Gap 2 (3-11) L 04/25/22 05:40 BUN 13 mg/dl (6-23) 04/25/22 05:40 Creatinine 0.53 mg/dl (0.6-1.2) L 04/25/22 05:40 Est Cr Clr Drug Dosing 101.6 ml/min 04/25/22 05:40 Est GFR ( Amer) 112.3 ml/min 04/25/22 05:40 Est GFR (Non-Af Amer) 96.9 ml/min 04/25/22 05:40 BUN/Creatinine Ratio 24.5 (10-20) H 04/25/22 05:40 Glucose 100 mg/dl (70-99(Fasting)) H 04/25/22 05:40 Calcium 8.7 mg/dl (8.5-10.1) 04/25/22 05:40 Phosphorus 3.6 mg/dl (2.5-4.9) 04/25/22 05:40 Magnesium 2.3 mg/dl (1.7-2.4) 04/25/22 05:40 Total Bilirubin 0.4 mg/dl (0.2-1.0) 04/24/22 09:00 AST 16 U/L (13-39) 04/24/22 09:00 ALT 15 U/L (7-52) 04/24/22 09:00 Alkaline Phosphatase 57 U/L (34-104) 04/24/22 09:00 Troponin I High Sens 4.9 pg/ml (0-14) 04/24/22 09:00 Total Protein 7.2 gm/dl (6.0-8.3) 04/24/22 09:00 Albumin 4.3 gm/dl (3.4-5.0) 04/24/22 09:00 Globulin 2.9 gm/dl (2.5-4.0) 04/24/22 09:00 Albumin/Globulin Ratio 1.5 (0.9-2) 04/24/22 09:00 Procalcitonin < 0.05 ng/ml (0-0.5) 04/25/22 05:40 Urine Color Yellow 04/24/22 10:01 Urine Appearance Clear (Clear) 04/24/22 10:01 Urine pH 6.5 (4.5-7.5) 04/24/22 10:01 Ur Specific [place] 1.006 (1.000-1.030) 04/24/22 10:01 Urine Protein Negative (Negative) 04/24/22 10:01 Urine Glucose (UA) Negative (Negative) 04/24/22 10:01 Urine Ketones Negative (Negative) 04/24/22 10:01 Urine Blood Negative (Negative) 04/24/22 10:01 Urine Nitrite Negative (Negative) 04/24/22 10:01 Urine Bilirubin Negative (Negative) 04/24/22 10:01 Urine Urobilinogen Negative (Negative) 04/24/22 10:01 Ur Leukocyte Esterase Negative (Negative) 04/24/22 10:01 SARS-CoV-2 (PCR) NEGATIVE (Negative) 04/24/22 09:00 Influenza Type A (PCR) Negative (Neg) 04/24/22 09:00 Influenza Type B (PCR) Negative (Neg) 04/24/22 09:00 RSV (RT-PCR) Negative (Neg) 04/24/22 09:00 Impressions Chest X-Ray 04/24/22 08:48 XR chest 1V portable HISTORY: Dyspnea COMPARISON: Chest 02/14/2022. FINDINGS: No pneumothorax. No pleural effusions. The cardiac silhouette remains borderline enlarged. There is mild bibasilar interstitial thickening. The upper lung zones appear clear. No evidence for pulmonary edema. There appears be mild emphysema. IMPRESSION: Mild bibasilar interstitial thickening which is similar to the prior study. This could be chronic or represent a low-grade interstitial pneumonitis. ACT 112: Negative or not required by law. Electronically signed by: Yunier Alves M.D. 04/24/2022 9:28 AM (1) COPD (chronic obstructive pulmonary disease) COPD type: unspecified COPD Qualified Code(s): J44.9 - Chronic obstructive pulmonary disease, unspecified
[2022-04-25] MEDS: ALBUT/IPRATROP 3MG/0.5MG NEB 3 ML VIAL NEB SCH ×3 (15:06→22:51)
[2022-04-25] MEDS: DOXAZosin MESYLATE TAB 2 MG TAB PO SCH (20:10)
[2022-04-25] MEDS: MONTELUKAST SODIUM 10 MG TABLET PO SCH (20:10)
[2022-04-25] MEDS: LORazepam 0.5 MG TAB PO PRN (20:46)
[2022-04-26] MEDS: ALBUT/IPRATROP 3MG/0.5MG NEB 3 ML VIAL NEB SCH ×6 (03:15→23:05)
[2022-04-26] MEDS: BUDESONIDE 0.5 MG/2 ML VIAL (PULMICORT) INH SCH ×2 (07:12→19:48)
[2022-04-26] MEDS: NICOTINE 14 MG/24 HR PATCH TD SCH (08:44)
[2022-04-26] MEDS: LOSARTAN POTASSIUM 50 MG TAB PO SCH (08:44)
[2022-04-26] MEDS: FEXOFENADINE HCL 180 MG TAB PO SCH (08:45)
[2022-04-26] MEDS: methylPREDNISolone 40 MG in SYRINGE 0 ML IV SCH ×2 (08:45→21:00)
[2022-04-26] MEDS: FLUTICASONE/VILANTEROL 200/25MCG 14 PUFFS/INHALER INH SCH (08:46)
[2022-04-26] MEDS: HEPARIN SOD 5,000 UNIT/0.5 ML VIAL SQ SCH ×2 (08:46→20:29)
[2022-04-26] MEDS: DOCUSATE SODIUM 100 MG CAP PO SCH ×2 (08:47→20:57)
[2022-04-26] MEDS: ADVANCED PROBIOTIC 1250 MG CAPSULE PO SCH (10:23)
--- NOTE | 2022-04-26 13:20 | Hospitalist Progress Note ---
Date of Service April 26, 2022 Assessment & Plan (1) COPD (chronic obstructive pulmonary disease): (2) Acute exacerbation of chronic obstructive airways disease: Plan: Hx of severe COPD last hospitalization in January 2022 Since then did not follow up w/ pulmonary medicine Pro-Ron is 0.05 Plan; Continue on [id number] duo nebs every 4 hours. Titrate oxygen to maintain saturation at 88 to 92% Continue on inhaled corticosteroids. Continue on methylprednisolone 40 mg twice daily. Plan to switch to prednisone 40 mg twice on discharge for total of 5 days. Then switch to 10 mg prednisone. -- She will need pulmonology follow-up as outpatient. (3) Chronic respiratory failure with hypoxia: Plan: Secondary to COPD (4) HTN (hypertension): Plan: cont. home losartan, doxazosin -monitor BP Code: DNR/DNI - discussed w/ the pt at the bedside. She would like bipap if she needed it. Admission and Anticipated Discharge Date Admission Date: April 24, 2022 Subjective Patient seen and examined at bedside. She reports that her breathing was better yesterday after 1 hour of nebulized treatment. However, she continues to feel short of breath today. She is saturating well on her baseline oxygen. Telemetry shows sinus tachycardia with PACs Review of Systems Review of Systems: All systems reviewed & are unremarkable except as noted in Subjective Physical Exam Physical Exam: Constitutional: WD/WN, vitals as above, NAD, sitting up in bed, pleasant, conversing easily Neck: trachea midline, no thyromegaly normal visual inspection Respiratory: Bilateral occasional wheeze present. Cardiovascular: RRR, no murmur, no edema Vessels: no JVD or carotid bruit Chest: normal inspection of chest Abdomen: normal bowel sounds, soft, nontender, no hepatosplenomegaly Musculoskeletal: no cyanosis or clubbing, extremities motor strength 5/5 Skin: no rashes, warm and dry normal turgor Neurologic: PERRL, EOMI, accommodation nl, no face palsy, no dysarthria CN's II- XI intact bilaterally and moves all extremities Psychiatric: A+Ox3, euthymic affect Lymphatic: no cervical or axillary lymphadenopathy : deferred Results & Data Results & Data ([facility]) Vital Signs (Past 12 Hours) Vital Signs Temp Pulse Pulse Resp BP Pulse Ox O2 Del Method 04/26/22 06:07 92 H 04/26/22 11:30 Nasal Cannula 04/26/22 11:20 90 16 96 Nasal Cannula 04/26/22 07:15 88 18 97 Nasal Cannula 04/26/22 05:58 36.7 C 102 H 18 155/71 H 92 Nasal Cannula 04/26/22 03:15 90 16 97 Nasal Cannula 04/26/22 03:15 36.7 C 87 18 147/71 H 97 Nasal Cannula O2 Flow Rate 04/26/22 06:07 04/26/22 11:30 3 04/26/22 11:20 3 04/26/22 07:15 2.5 04/26/22 05:58 2.5 04/26/22 03:15 2.5 04/26/22 03:15 Laboratory Results Laboratory Results WBC 11.66 K/ul (4.8-10.8) H 04/25/22 05:40 RBC 4.08 M/uL (3.93-5.22) 04/25/22 05:40 Hgb 12.7 g/dl (12.0-16.0) 04/25/22 05:40 Hct 37.1 % (34.1-44.9) 04/25/22 05:40 MCV 90.9 fL (80.0-100.0) 04/25/22 05:40 MCH 31.1 pg (25.0-34.0) 04/25/22 05:40 MCHC 34.2 g/dL (32.0-36.0) 04/25/22 05:40 RDW Std Deviation 42.8 fL (36.4-46.3) 04/25/22 05:40 RDW Coeff of Carl 12.8 % (11.5-14.5) 04/25/22 05:40 Plt Count 309 K/uL (130-400) 04/25/22 05:40 MPV 9.5 fL (9.4-12.3) 04/25/22 05:40 Immature Gran % (Auto) 0.4 % 04/24/22 09:00 Neut % (Auto) 83.3 % 04/24/22 09:00 Lymph % (Auto) 10.2 % 04/24/22 09:00 [place] % (Auto) 4.7 % 04/24/22 09:00 Eos % (Auto) 0.9 % 04/24/22 09:00 Baso % (Auto) 0.5 % 04/24/22 09:00 Neut # (Auto) 8.01 K/uL (1.4-6.5) H 04/24/22 09:00 Lymph # (Auto) 0.98 K/uL (1.2-3.4) L 04/24/22 09:00 [place] # (Auto) 0.45 K/uL (0.24-0.82) 04/24/22 09:00 Eos # (Auto) 0.09 K/uL (0-0.50) 04/24/22 09:00 Baso # (Auto) 0.05 K/uL (0-0.2) 04/24/22 09:00 Immature Gran # (Auto) 0.04 K/uL (0.00-0.02) H 04/24/22 09:00 PT 10.4 Seconds (9.0-12.0) 04/24/22 09:00 INR 1.0 (0.9-1.1) 04/24/22 09:00 APTT 24.0 Seconds (21.0-31.0) 04/24/22 09:00 PTT Ratio 0.9 04/24/22 09:00 VBG pH 7.32 (7.36-7.41) L 04/24/22 09:36 VBG pCO2 62 mmHg (38-50) H 04/24/22 09:36 VBG pO2 40 mmHg 04/24/22 09:36 VBG HCO3 32 mmol/L 04/24/22 09:36 VBG O2 Saturation 64.5 % 04/24/22 09:36 VBG Base Excess 4.0 mEq/L 04/24/22 09:36 Sodium 138 mmol/L (136-145) 04/25/22 05:40 Potassium 4.1 mmol/L (3.5-5.1) 04/25/22 05:40 Chloride 105 mmol/L (98-107) 04/25/22 05:40 Carbon Dioxide 31 mmol/L (21-32) 04/25/22 05:40 Anion Gap 2 (3-11) L 04/25/22 05:40 BUN 13 mg/dl (6-23) 04/25/22 05:40 Creatinine 0.53 mg/dl (0.6-1.2) L 04/25/22 05:40 Est Cr Clr Drug Dosing 101.6 ml/min 04/25/22 05:40 Est GFR ( Amer) 112.3 ml/min 04/25/22 05:40 Est GFR (Non-Af Amer) 96.9 ml/min 04/25/22 05:40 BUN/Creatinine Ratio 24.5 (10-20) H 04/25/22 05:40 Glucose 100 mg/dl (70-99(Fasting)) H 04/25/22 05:40 Calcium 8.7 mg/dl (8.5-10.1) 04/25/22 05:40 Phosphorus 3.6 mg/dl (2.5-4.9) 04/25/22 05:40 Magnesium 2.3 mg/dl (1.7-2.4) 04/25/22 05:40 Total Bilirubin 0.4 mg/dl (0.2-1.0) 04/24/22 09:00 AST 16 U/L (13-39) 04/24/22 09:00 ALT 15 U/L (7-52) 04/24/22 09:00 Alkaline Phosphatase 57 U/L (34-104) 04/24/22 09:00 Troponin I High Sens 4.9 pg/ml (0-14) 04/24/22 09:00 Total Protein 7.2 gm/dl (6.0-8.3) 04/24/22 09:00 Albumin 4.3 gm/dl (3.4-5.0) 04/24/22 09:00 Globulin 2.9 gm/dl (2.5-4.0) 04/24/22 09:00 Albumin/Globulin Ratio 1.5 (0.9-2) 04/24/22 09:00 Procalcitonin < 0.05 ng/ml (0-0.5) 04/25/22 05:40 Urine Color Yellow 04/24/22 10:01 Urine Appearance Clear (Clear) 04/24/22 10:01 Urine pH 6.5 (4.5-7.5) 04/24/22 10:01 Ur Specific Wend[place] 1.006 (1.000-1.030) 04/24/22 10:01 Urine Protein Negative (Negative) 04/24/22 10:01 Urine Glucose (UA) Negative (Negative) 04/24/22 10:01 Urine Ketones Negative (Negative) 04/24/22 10:01 Urine Blood Negative (Negative) 04/24/22 10:01 Urine Nitrite Negative (Negative) 04/24/22 10:01 Urine Bilirubin Negative (Negative) 04/24/22 10:01 Urine Urobilinogen Negative (Negative) 04/24/22 10:01 Ur Leukocyte Esterase Negative (Negative) 04/24/22 10:01 SARS-CoV-2 (PCR) NEGATIVE (Negative) 04/24/22 09:00 Influenza Type A (PCR) Negative (Neg) 04/24/22 09:00 Influenza Type B (PCR) Negative (Neg) 04/24/22 09:00 RSV (RT-PCR) Negative (Neg) 04/24/22 09:00 Impressions Chest X-Ray 04/24/22 08:48 XR chest 1V portable HISTORY: Dyspnea COMPARISON: Chest 02/14/2022. FINDINGS: No pneumothorax. No pleural effusions. The cardiac silhouette remains borderline enlarged. There is mild bibasilar interstitial thickening. The upper lung zones appear clear. No evidence for pulmonary edema. There appears be mild emphysema. IMPRESSION: Mild bibasilar interstitial thickening which is similar to the prior study. This could be chronic or represent a low-grade interstitial pneumonitis. ACT 112: Negative or not required by law. Electronically signed by: Yunier Alves M.D. 04/24/2022 9:28 AM (1) COPD (chronic obstructive pulmonary disease) COPD type: unspecified COPD Qualified Code(s): J44.9 - Chronic obstructive pulmonary disease, unspecified
[2022-04-26] MEDS: DOXAZosin MESYLATE TAB 2 MG TAB PO SCH (20:57)
[2022-04-26] MEDS: MONTELUKAST SODIUM 10 MG TABLET PO SCH (21:00)
[2022-04-26] MEDS: LORazepam 0.5 MG TAB PO PRN (21:00)
[2022-04-27] MEDS: ALBUT/IPRATROP 3MG/0.5MG NEB 3 ML VIAL NEB SCH ×3 (03:47→10:13)
[2022-04-27 06:32] LABS: Basophils # (auto) 0.01 K/uL (0-0.2); Basophils % (auto) 0.1 %; Hematocrit (blood only) 39.9 % (34.1-44.9); Hemoglobin 13.2 g/dl (12.0-16.0); Immature Granulocytes # (auto) 0.06 K/uL (0.00-0.02); Immature Granulocytes % (auto) 0.6 %; Lymphocytes # (auto) 1.01 K/uL (1.2-3.4); Lymphocytes % (auto) 10.3 %; Mean Corpuscular Hgb Conc 33.1 g/dL (32.0-36.0); Mean Corpuscular Volume 93.7 fL (80.0-100.0); Mean Platelet Volume 9.8 fL (9.4-12.3); Monocytes # (auto) 0.54 K/uL (0.24-0.82); Monocytes % (auto) 5.5 %; Neutrophils # (auto) 8.17 K/uL (1.4-6.5); Neutrophils % (auto) 83.5 %; Platelet Count 324 K/uL (130-400); RDW Coefficient of Variation 13.2 % (11.5-14.5); RDW Standard Deviation 45.1 fL (36.4-46.3); Red Blood Count 4.26 M/uL (3.93-5.22); White Blood Count 9.79 K/ul (4.8-10.8)
[2022-04-27 07:07] LABS: BUN Creatinine Ratio 24.1 (10-20); Calcium 8.9 mg/dl (8.5-10.1); Creatinine Clr Calc Pharmacy 91.8 ml/min
[2022-04-27] MEDS: BUDESONIDE 0.5 MG/2 ML VIAL (PULMICORT) INH SCH ×2 (07:18→19:22)
[2022-04-27] MEDS: LOSARTAN POTASSIUM 50 MG TAB PO SCH (08:07)
[2022-04-27] MEDS: FEXOFENADINE HCL 180 MG TAB PO SCH (08:07)
[2022-04-27] MEDS: ADVANCED PROBIOTIC 1250 MG CAPSULE PO SCH (08:07)
[2022-04-27] MEDS: NICOTINE 14 MG/24 HR PATCH TD SCH (08:08)
[2022-04-27] MEDS: methylPREDNISolone 40 MG in SYRINGE 0 ML IV SCH ×3 (08:08→21:30)
[2022-04-27] MEDS: FLUTICASONE/VILANTEROL 200/25MCG 14 PUFFS/INHALER INH SCH (08:08)
[2022-04-27] MEDS: DOCUSATE SODIUM 100 MG CAP PO SCH ×2 (08:09→20:22)
[2022-04-27] MEDS: HEPARIN SOD 5,000 UNIT/0.5 ML VIAL SQ SCH ×2 (08:09→19:48)
[2022-04-27] MEDS ORDERED: ALBUT/IPRATROP 3MG/0.5MG NEB 3 ML VIAL NEB ONE (08:53)
--- NOTE | 2022-04-27 11:34 | Pulmonary Consultation ---
Date of Consultation April 27, 2022 Assessment & Plan (1) Acute exacerbation of chronic obstructive airways disease: (2) Acute dyspnea: (3) Acute and chronic respiratory failure with hypoxia: (4) Hypercapnic respiratory failure: Plan Impression: 71-year-old female with hypoxemic hypercarbic respiratory failure secondary to presumed obstructive lung disease (PFTs not available. She continues to experience exacerbation but is not optimized from medical standpoint. Recommendations: 1. Recommended the patient use ASV during the day and at night as tolerated. She expresses significant issues with claustrophobia. I advised her that this would be the therapy of choice and she is willing to give it a try. If she is able to be compliant, consideration for outpatient therapy might be appropriate 2. Patient should not be using nebulized budesonide as well as Breo as this is doubling up on her steroid dose. We will discontinue Breo. Start Incruse. Add Perforomist to budesonide. 3. Increase Solu-Medrol to 40 mg IV every 8. The patient is on chronic prednisone therapy in the outpatient setting. 4. Increase azithromycin to 250 mg daily given acute exacerbation. Can decrease back to 250 mg 3 times a week when stable. 5. Continue supplemental oxygen titrated to keep saturations at or above 88%. Oxygen should not be titrated above 92% given hypercarbia. 6. If she fails to improve, consideration for the addition of theophylline may be an option to see if it offers her a clinical benefit. Does have a relatively narrow therapeutic window and close follow-up will be required. She is already tachycardic which may complicate issues. 7. We discussed management of dyspnea as a palliative measure. Low-dose narcotics or benzodiazepines could be used. The patient was advised this would not improve her lung function but may improve her symptoms. She wants to see if she can get optimized medically at this point time. Thanks for the opportunity participating in the care of this patient. We will continue to follow with you. Feel free to contact us with questions or concerns History of Present Illness Attending Physician: Grzegorz Lieberman MD History of Present Illness Asked by hospitalist to assist in evaluation management this patient with COPD admitted with exacerbation and shortness of breath. History is obtained from review of electronic medical record as well as interview the patient. Patient is a 71-year-old female with chronic hypoxemic respiratory failure and obstructive lung disease. Prior PFTs are not available to review. She reports being followed by pulmonary in the past as well however there are no notes in our system to reflect that evaluation. No PFTs available. The patient was hospitalized back in January and seen by pulmonary. She was placed on Anoro at that time. She also required BiPAP. She was dismissed from the facility but returned 04/24 complaining of shortness of breath for a week. She was treated with bronchodilators and steroids. She reportedly was on hospice at some period of time. She is on chronic azithromycin therapy as well as chronic prednisone. She is having continued issues with chest congestion and wheezing as well as shortness of breath. She denies fevers chills or night sweats. No chest pain or palpitations. No significant lower extremity edema Allergies Allergy/AdvReac Type Severity Reaction Status Date / Time kiwi Allergy Unknown Anaphylaxis Verified 04/24/22 10:08 Penicillins Allergy Unknown Anaphylaxis Verified 04/24/22 10:08 moxifloxacin Allergy dyspnea Verified 04/24/22 10:08 amlodipine AdvReac Unknown Muscle Pain Verified 04/24/22 10:08 furosemide [From Lasix] AdvReac Cramping Verified 04/24/22 10:08 of the Muscles lisinopril AdvReac Unknown Verified 04/24/22 10:08 propylene glycol AdvReac Rash Verified 04/24/22 10:08 Tacyeld-PQN-AyG Reductase AdvReac Muscle Pain Verified 04/24/22 10:08 Inhibitor Home Medications Medication Instructions Recorded Confirmed Type albuterol sulfate 90 mcg/actuation 2 puff inhalation QID PRN 02/14/22 02/14/22 History aerosol inhaler (Ventolin HFA) Shortness Of Breath Or Wheezing alprazolam 0.5 mg tablet 0.5 mg PO HS 02/14/22 02/14/22 History alprazolam 0.5 mg tablet 0.5 mg PO QID PRN Anxiety 02/14/22 02/14/22 History azithromycin 250 mg tablet 250 mg PO MOWEFR 02/14/22 02/14/22 History budesonide 1 mg/2 mL suspension 1 mg inhalation BID 02/14/22 02/14/22 History for nebulization docusate sodium 100 mg capsule 100 mg PO BID 02/14/22 02/14/22 History (Colace) doxazosin 2 mg tablet 2 mg PO PM 02/14/22 02/14/22 History fexofenadine 180 mg tablet 180 mg PO DAILY 02/14/22 02/14/22 History ipratropium 20 mcg-albuterol 100 1 puff inhalation Q4H PRN 02/14/22 02/14/22 History mcg/actuation mist for inhalation Shortness Of Breath Or Wheezing (Combivent Respimat) losartan 100 mg tablet 100 mg PO DAILY 02/14/22 02/14/22 History montelukast 10 mg tablet 10 mg PO HS 02/14/22 02/14/22 History nicotine 14 mg/24 hr daily 14 mg transdermal DAILY 02/14/22 02/14/22 History transdermal patch sennosides 8.6 mg-docusate sodium 1 tab PO DAILY PRN Constipation 02/14/22 02/14/22 History 50 mg tablet (Senna Plus) ipratropium 0.5 mg-albuterol 3 mg 3 ml inhalation QID PRN sob, 02/20/22 02/14/22 Rx (2.5 mg base)/3 mL nebulization wheezing #90 mL soln prednisone 10 mg tablet See Rx Instructions .Route 02/20/22 02/14/22 Rx .COMPLEX 8 days #15 tabs umeclidinium 62.5 mcg-vilanterol 1 inh inhalation DAILY #60 ea 02/20/22 Rx 25 mcg/actuation powdr for inhalation (Anoro Ellipta) Patient History Medical History Blindness Chronic respiratory failure with hypoxia COPD (chronic obstructive pulmonary disease) Depression with anxiety History of tobacco use HTN (hypertension) Surgical History H/O tubal ligation History of cholecystectomy Family History Mother Coronary heart disease Depression Social History Smoking Status: Former smoker Tobacco Type: Cigarettes Second Hand Exposure: No; Do You Dip or Chew Tobacco: No; Tobacco Cessation Education Requested by Patient: No Hx Alcohol Use: No Hx Substance Use: No Preferred Language: Pashto Communication Ability: Effective Home Support Worker Required: No Beliefs That Will Affect Care: None marital status: / Current Living Situation: Personal Care Facility Current Living Situation Comment: Assisted living How many Children do You have: 2 Other Information That Helps Us Care for You: No Feels Safe at Home: Yes Safety Concerns: Feels Safe At This Time Assistive Devices: Hospital Bed, Nebulizer, Oxygen - Continuous and Wheelchair Review of Systems Review of Systems: Refer to hospitalist note Physical Exam Constitutional: WD/WN, vitals as above Neck: trachea midline, no thyromegaly Respiratory: + labored breathing, + cough and + tachypneic; no respiratory distress Auscultation: + wheezes Cardiovascular: RRR, no murmur, no edema Gastrointestinal (Abdomen): normal bowel sounds, soft, nontender, no hepatosplenomegaly Musculoskeletal: Extremities: extremities normal to inspection Skin: no rashes, warm and dry Neurologic: Nonfocal exam Lymphatic: no cervical lymphadenopathy Results & Data Results & Data ([facility]) Vital Signs (Past 12 Hours) Vital Signs Temp Pulse Resp BP Pulse Ox O2 Del Method O2 Flow Rate 04/27/22 10:15 108 H 18 95 Nasal Cannula 2.5 04/27/22 08:15 Nasal Cannula 3 04/27/22 07:18 96 H 18 99 Nasal Cannula 3 04/27/22 07:43 36.8 C 79 18 156/72 H 99 Nasal Cannula 2.5 04/27/22 03:47 104 H 18 98 Nasal Cannula 2.5 Laboratory Results Procalcitonin negative Influenza, RSV, and castañeda virus swabs negative Critical Care Results & Data Vital Signs (Past 12 Hours) Vital Signs Temp Pulse Resp BP Pulse Ox O2 Del Method O2 Flow Rate 04/27/22 10:15 108 H 18 95 Nasal Cannula 2.5 04/27/22 08:15 Nasal Cannula 3 04/27/22 07:18 96 H 18 99 Nasal Cannula 3 04/27/22 07:43 36.8 C 79 18 156/72 H 99 Nasal Cannula 2.5 04/27/22 03:47 104 H 18 98 Nasal Cannula 2.5 Lab & Micro Results (Past 24 Hours) RBC 4.26 M/uL (3.93-5.22) 04/27/22 WBC 9.79 K/ul (4.8-10.8) 04/27/22 Hgb 13.2 g/dl (12.0-16.0) 04/27/22 Hct 39.9 % (34.1-44.9) 04/27/22 MCV 93.7 fL (80.0-100.0) 04/27/22 MCH 31.0 pg (25.0-34.0) 04/27/22 MCHC 33.1 g/dL (32.0-36.0) 04/27/22 RDW Standard Deviation 45.1 fL (36.4-46.3) 04/27/22 RDW Coefficient of Variation 13.2 % (11.5-14.5) 04/27/22 Plt Count 324 K/uL (130-400) 04/27/22 MPV 9.8 fL (9.4-12.3) 04/27/22 Neutrophils (%) (Auto) 83.5 % 04/27/22 Lymphocytes (%) (Auto) 10.3 % 04/27/22 Monocytes # (Auto) 0.54 K/uL (0.24-0.82) 04/27/22 Eosinophils # (Auto) 0.00 K/uL (0-0.50) 04/27/22 Immature Granulocyte % (Auto) 0.6 % 04/27/22 Neutrophils # (Auto) 8.17 K/uL (1.4-6.5) H 04/27/22 Lymphocytes # (Auto) 1.01 K/uL (1.2-3.4) L 04/27/22 Monocytes # (Auto) 0.54 K/uL (0.24-0.82) 04/27/22 Eosinophils # (Auto) 0.00 K/uL (0-0.50) 04/27/22 Basophils # (Auto) 0.01 K/uL (0-0.2) 04/27/22 Immature Granulocyte # (Auto) 0.06 K/uL (0.00-0.02) H 04/27 Na 138 mmol/L (136-145) 04/27/22 K 4.0 mmol/L (3.5-5.1) 04/27/22 Cl 101 mmol/L (98-107) 04/27/22 CO2 32 mmol/L (21-32) 04/27/22 Anion Gap 5 (3-11) 04/27/22 BUN 14 mg/dl (6-23) 04/27/22 Creatinine 0.58 mg/dl (0.6-1.2) L 04/27/22 Estimated GFR ( Amer) 109.0 ml/min 04/27/22 Estimated GFR (Non-Af Amer) 94.0 ml/min 04/27/22 BUN/Creatinine Ratio 24.1 (10-20) H 04/27/22 Glu 115 mg/dl (70-99(Fasting)) H 04/27/22 Ca 8.9 mg/dl (8.5-10.1) 04/27/22 Calcium Level 8.9 mg/dl (8.5-10.1) 04/27/22 05:35 Microbiology 04/24/22 09:36 Aerobic Blood Culture - Preliminary Blood No growth in Aerobic bottle after 48 hours. Anaerobic Blood Culture - Preliminary No growth in Anaerobic bottle after 48 hours. 04/24/22 09:00 Aerobic Blood Culture - Preliminary Blood No growth in Aerobic bottle after 48 hours. Anaerobic Blood Culture - Preliminary No growth in Anaerobic bottle after 48 hours. I & O Totals 24 Hours 04/26/22 04/27/22 04/28/22 06:59 06:59 06:59 Intake Total 1060 / 1060 960 / 960 Balance 1060 / 1060 960 / 960 Cumulative 04/24/22 08:36 thru 04/27/22 06:00 Intake Total 2820 Balance 2820 RT Ventilator Mngmt (Last Documented) Ventilator Ordered Settings Respiratory Rate 18 04/27/22 10:15 Ventilator - PT Measurements Respiratory Rate 18 PG Care Time/CCT Total # of Minutes Spent Total Time Spent with Patient: Total time spent is greater than 50% in coordination of care (as documented) at patient's floor/unit and/or counseling patient: Coding Level of Care Code 19691 Initial Inpt Care Lvl 3 Diagnoses Acute exacerbation of chronic obstructive airways disease J44.1 Acute dyspnea R06.00 Acute and chronic respiratory failure with hypoxia J96.21 Hypercapnic respiratory failure J96.92
--- NOTE | 2022-04-27 12:32 | Hospitalist Progress Note ---
Date of Service April 27, 2022 Assessment & Plan (1) COPD (chronic obstructive pulmonary disease): (2) Acute exacerbation of chronic obstructive airways disease: Plan: Hx of severe COPD last hospitalization in January 2022 Since then did not follow up w/ pulmonary medicine Pro-Ron is 0.05 Plan; Appreciate pulmonary recommendation. Plan to use ASV during the day and night as tolerated. Breo discontinued. Continue on nebulized budesonide and Perforomist added as well. Incruse added as well. -- Solu-Medrol increased to 40 mg IV 8 hourly. Azithromycin dose increased to 250 mg daily. -Titrate oxygen to maintain saturation at 88-92 pecent. (3) Chronic respiratory failure with hypoxia: Plan: Secondary to COPD (4) HTN (hypertension): Plan: cont. home losartan, doxazosin -monitor BP Code: DNR/DNI - discussed w/ the pt at the bedside. She would like bipap if she needed it. Dispocontinued to have significant wheezing and reports shortness of breath at rest. We will see patient's response on current regimen . Admission and Anticipated Discharge Date Admission Date: April 24, 2022 Subjective Patient seen and examined at bedside. She continues to feel short of breath and has a hard time getting up and going to the bathroom due to shortness of breath. She is on baseline oxygen requirement. Review of Systems Review of Systems: All systems reviewed & are unremarkable except as noted in Subjective Physical Exam Physical Exam: Constitutional: WD/WN, vitals as above, NAD, sitting up in bed, pleasant, conversing easily Neck: trachea midline, no thyromegaly normal visual inspection Respiratory: Bilateral wheeze present. Cardiovascular: RRR, no murmur, no edema Vessels: no JVD or carotid bruit Chest: normal inspection of chest Abdomen: normal bowel sounds, soft, nontender, no hepatosplenomegaly Musculoskeletal: no cyanosis or clubbing, extremities motor strength 5/5 Skin: no rashes, warm and dry normal turgor Neurologic: PERRL, EOMI, accommodation nl, no face palsy, no dysarthria CN's II- XI intact bilaterally and moves all extremities Psychiatric: A+Ox3, euthymic affect Lymphatic: no cervical or axillary lymphadenopathy : deferred Results & Data Results & Data ([facility]) Vital Signs (Past 12 Hours) Vital Signs Temp Pulse Resp BP Pulse Ox O2 Del Method O2 Flow Rate 04/27/22 10:15 108 H 18 95 Nasal Cannula 2.5 04/27/22 08:15 Nasal Cannula 3 04/27/22 07:18 96 H 18 99 Nasal Cannula 3 04/27/22 07:43 36.8 C 79 18 156/72 H 99 Nasal Cannula 2.5 04/27/22 03:47 104 H 18 98 Nasal Cannula 2.5 Laboratory Results Laboratory Results WBC 9.79 K/ul (4.8-10.8) 04/27/22 05:35 RBC 4.26 M/uL (3.93-5.22) 04/27/22 05:35 Hgb 13.2 g/dl (12.0-16.0) 04/27/22 05:35 Hct 39.9 % (34.1-44.9) 04/27/22 05:35 MCV 93.7 fL (80.0-100.0) 04/27/22 05:35 MCH 31.0 pg (25.0-34.0) 04/27/22 05:35 MCHC 33.1 g/dL (32.0-36.0) 04/27/22 05:35 RDW Std Deviation 45.1 fL (36.4-46.3) 04/27/22 05:35 RDW Coeff of Carl 13.2 % (11.5-14.5) 04/27/22 05:35 Plt Count 324 K/uL (130-400) 04/27/22 05:35 MPV 9.8 fL (9.4-12.3) 04/27/22 05:35 Immature Gran % (Auto) 0.6 % 04/27/22 05:35 Neut % (Auto) 83.5 % 04/27/22 05:35 Lymph % (Auto) 10.3 % 04/27/22 05:35 [place] % (Auto) 5.5 % 04/27/22 05:35 Eos % (Auto) 0.0 % 04/27/22 05:35 Baso % (Auto) 0.1 % 04/27/22 05:35 Neut # (Auto) 8.17 K/uL (1.4-6.5) H 04/27/22 05:35 Lymph # (Auto) 1.01 K/uL (1.2-3.4) L 04/27/22 05:35 [place] # (Auto) 0.54 K/uL (0.24-0.82) 04/27/22 05:35 Eos # (Auto) 0.00 K/uL (0-0.50) 04/27/22 05:35 Baso # (Auto) 0.01 K/uL (0-0.2) 04/27/22 05:35 Immature Gran # (Auto) 0.06 K/uL (0.00-0.02) H 04/27/22 05:35 PT 10.4 Seconds (9.0-12.0) 04/24/22 09:00 INR 1.0 (0.9-1.1) 04/24/22 09:00 APTT 24.0 Seconds (21.0-31.0) 04/24/22 09:00 PTT Ratio 0.9 04/24/22 09:00 VBG pH 7.32 (7.36-7.41) L 04/24/22 09:36 VBG pCO2 62 mmHg (38-50) H 04/24/22 09:36 VBG pO2 40 mmHg 04/24/22 09:36 VBG HCO3 32 mmol/L 04/24/22 09:36 VBG O2 Saturation 64.5 % 04/24/22 09:36 VBG Base Excess 4.0 mEq/L 04/24/22 09:36 Sodium 138 mmol/L (136-145) 04/27/22 05:35 Potassium 4.0 mmol/L (3.5-5.1) 04/27/22 05:35 Chloride 101 mmol/L (98-107) 04/27/22 05:35 Carbon Dioxide 32 mmol/L (21-32) 04/27/22 05:35 Anion Gap 5 (3-11) 04/27/22 05:35 BUN 14 mg/dl (6-23) 04/27/22 05:35 Creatinine 0.58 mg/dl (0.6-1.2) L 04/27/22 05:35 Est Cr Clr Drug Dosing 91.8 ml/min 04/27/22 05:35 Est GFR ( Amer) 109.0 ml/min 04/27/22 05:35 Est GFR (Non-Af Amer) 94.0 ml/min 04/27/22 05:35 BUN/Creatinine Ratio 24.1 (10-20) H 04/27/22 05:35 Glucose 115 mg/dl (70-99(Fasting)) H 04/27/22 05:35 Calcium 8.9 mg/dl (8.5-10.1) 04/27/22 05:35 Phosphorus 3.6 mg/dl (2.5-4.9) 04/25/22 05:40 Magnesium 2.3 mg/dl (1.7-2.4) 04/25/22 05:40 Total Bilirubin 0.4 mg/dl (0.2-1.0) 04/24/22 09:00 AST 16 U/L (13-39) 04/24/22 09:00 ALT 15 U/L (7-52) 04/24/22 09:00 Alkaline Phosphatase 57 U/L (34-104) 04/24/22 09:00 Troponin I High Sens 4.9 pg/ml (0-14) 04/24/22 09:00 Total Protein 7.2 gm/dl (6.0-8.3) 04/24/22 09:00 Albumin 4.3 gm/dl (3.4-5.0) 04/24/22 09:00 Globulin 2.9 gm/dl (2.5-4.0) 04/24/22 09:00 Albumin/Globulin Ratio 1.5 (0.9-2) 04/24/22 09:00 Procalcitonin < 0.05 ng/ml (0-0.5) 04/25/22 05:40 Urine Color Yellow 04/24/22 10:01 Urine Appearance Clear (Clear) 04/24/22 10:01 Urine pH 6.5 (4.5-7.5) 04/24/22 10:01 Ur Specific [place] 1.006 (1.000-1.030) 04/24/22 10:01 Urine Protein Negative (Negative) 04/24/22 10:01 Urine Glucose (UA) Negative (Negative) 04/24/22 10:01 Urine Ketones Negative (Negative) 04/24/22 10:01 Urine Blood Negative (Negative) 04/24/22 10:01 Urine Nitrite Negative (Negative) 04/24/22 10:01 Urine Bilirubin Negative (Negative) 04/24/22 10:01 Urine Urobilinogen Negative (Negative) 04/24/22 10:01 Ur Leukocyte Esterase Negative (Negative) 04/24/22 10:01 SARS-CoV-2 (PCR) NEGATIVE (Negative) 04/24/22 09:00 Influenza Type A (PCR) Negative (Neg) 04/24/22 09:00 Influenza Type B (PCR) Negative (Neg) 04/24/22 09:00 RSV (RT-PCR) Negative (Neg) 04/24/22 09:00 Impressions Chest X-Ray 04/24/22 08:48 XR chest 1V portable HISTORY: Dyspnea COMPARISON: Chest 02/14/2022. FINDINGS: No pneumothorax. No pleural effusions. The cardiac silhouette remains borderline enlarged. There is mild bibasilar interstitial thickening. The upper lung zones appear clear. No evidence for pulmonary edema. There appears be mild emphysema. IMPRESSION: Mild bibasilar interstitial thickening which is similar to the prior study. This could be chronic or represent a low-grade interstitial pneumonitis. ACT 112: Negative or not required by law. Electronically signed by: Yunier Alves M.D. 04/24/2022 9:28 AM (1) COPD (chronic obstructive pulmonary disease) COPD type: unspecified COPD Qualified Code(s): J44.9 - Chronic obstructive pulmonary disease, unspecified
[2022-04-27] MEDS: UMECLIDINIUM BROMIDE 62.5MCG/BLISTER 7 PUFFS/INHALER INH SCH (12:59)
[2022-04-27] MEDS: FORMOTEROL 20 MCG/2 ML VIAL NEB SCH ×2 (13:00→19:22)
[2022-04-27] MEDS: DOXAZosin MESYLATE TAB 2 MG TAB PO SCH (20:21)
[2022-04-27] MEDS: MONTELUKAST SODIUM 10 MG TABLET PO SCH (20:21)
[2022-04-27] MEDS: LORazepam 0.5 MG TAB PO PRN (21:30)
[2022-04-28] MEDS: methylPREDNISolone 40 MG in SYRINGE 0 ML IV SCH ×3 (06:06→20:44)
[2022-04-28 07:30] LABS: Basophils # (auto) 0.02 K/uL (0-0.2); Basophils % (auto) 0.2 %; Eosinophils # (auto) 0.01 K/uL (0-0.50); Eosinophils % (auto) 0.1 %; Hematocrit (blood only) 39.6 % (34.1-44.9); Hemoglobin 13.3 g/dl (12.0-16.0); Immature Granulocytes # (auto) 0.05 K/uL (0.00-0.02); Immature Granulocytes % (auto) 0.4 %; Lymphocytes # (auto) 1.61 K/uL (1.2-3.4); Lymphocytes % (auto) 12.8 %; Mean Corpuscular Hemoglobin 31.1 pg (25.0-34.0); Mean Corpuscular Hgb Conc 33.6 g/dL (32.0-36.0); Mean Corpuscular Volume 92.7 fL (80.0-100.0); Mean Platelet Volume 9.8 fL (9.4-12.3); Monocytes # (auto) 0.74 K/uL (0.24-0.82); Monocytes % (auto) 5.9 %; Neutrophils # (auto) 10.11 K/uL (1.4-6.5); Neutrophils % (auto) 80.6 %; Platelet Count 331 K/uL (130-400); RDW Coefficient of Variation 12.9 % (11.5-14.5); RDW Standard Deviation 43.9 fL (36.4-46.3); Red Blood Count 4.27 M/uL (3.93-5.22); White Blood Count 12.54 K/ul (4.8-10.8)
[2022-04-28] MEDS: FORMOTEROL 20 MCG/2 ML VIAL NEB SCH ×2 (07:31→19:44)
[2022-04-28] MEDS: BUDESONIDE 0.5 MG/2 ML VIAL (PULMICORT) INH SCH ×2 (07:31→19:44)
[2022-04-28 08:04] LABS: BUN Creatinine Ratio 23.8 (10-20); Calcium 8.9 mg/dl (8.5-10.1); Creatinine Clr Calc Pharmacy 84.5 ml/min; Est GFR (African American) 106.1 ml/min; Est GFR (Non-African American) 91.5 ml/min; Potassium 3.8 mmol/L (3.5-5.1)
[2022-04-28] MEDS: AZITHROMYCIN 250 MG TAB PO SCH (09:00)
[2022-04-28] MEDS: LOSARTAN POTASSIUM 50 MG TAB PO SCH (09:01)
[2022-04-28] MEDS: HEPARIN SOD 5,000 UNIT/0.5 ML VIAL SQ SCH ×2 (09:01→20:43)
[2022-04-28] MEDS: FEXOFENADINE HCL 180 MG TAB PO SCH (09:01)
[2022-04-28] MEDS: NICOTINE 14 MG/24 HR PATCH TD SCH (09:02)
[2022-04-28] MEDS: ADVANCED PROBIOTIC 1250 MG CAPSULE PO SCH (09:02)
[2022-04-28] MEDS: UMECLIDINIUM BROMIDE 62.5MCG/BLISTER 7 PUFFS/INHALER INH SCH (09:03)
[2022-04-28] MEDS: DOCUSATE SODIUM 100 MG CAP PO SCH ×2 (09:12→20:47)
--- NOTE | 2022-04-28 09:32 | Pulmonology Progress Note ---
Date of Service April 28, 2022 Assessment & Plan (1) Acute exacerbation of chronic obstructive airways disease: (2) Acute dyspnea: (3) Acute and chronic respiratory failure with hypoxia: Plan Impression: 71-year-old female with hypoxemic hypercarbic respiratory failure secondary to presumed obstructive lung disease (PFTs not available). She continues to experience exacerbation CT chest 02/12/2022ersonally reviewed: Centrilobular emphysema appreciated bilaterally Tree-in-bud opacities appreciated on the periphery in the left upper lobe as well as left lower lobe No mediastinal lymphadenopathy ABG 04/28/2022: pH 7.47/43/106 on 2 and half liters -- Acute on chronic hypoxic respiratory failure Likely secondary to COPD exacerbation Was taking budesonide nebulized twice a day along with Anoro. Also was on azithromycin 250 mg [id number]. QTC 442 04/24/22 Currently she is on Solu-Medrol, Incruse, budesonide nebulized and formoterol nebulized --Abnormal chest CT Tree-in-bud opacities appreciated in left upper as well as left lower lobe on CAT scan done January 2022 Continue with antibiotic Repeat CAT scan July 2022 -- Ex-smoker [id number] smoking history Quit at the age of 70 Encouraged to continue abstinence from smoking Plan: Patient does not qualify for AVAPS machine right now If she has spirometry or pulmonary function test done as an outpatient and she will likely qualify for AVAPS Will still recommend to continue with BiPAP nightly and as needed shortness of breath Addition of Roflumilast 250 MCG once a day for 4 weeks followed by 500 MCG daily on discharge Please note the above document was generated using voice recognition software. It may contain grammatical, syntax or spelling errors.Any formal questions or concerns about the content, text or information contained within the body of this dictation should be directly addressed to the provider for clarification. Admission and Anticipated Discharge Date Admission Date: April 24, 2022 Subjective Patient seen and examined at bedside. 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 She states she is feeling better compared to when coming to the hospital but st ill gets short of breath especially on exertion Denies any chest pain, no headache, no nausea, no vomiting Coughing up phlegm which is mostly clear. Denies any hemoptysis Fair appetite Review of Systems Review of Systems: All systems reviewed & are unremarkable except as noted in Subjective Physical Exam Physical Exam: Constitutional: No acute distress HEENT: EOMI, PERRLA, blind on the left eye Respiratory system: Decreased air entry bilaterally, no wheeze, no rhonchi, no crackles CVS: S1-S2 positive, no murmurs or gallops Abdomen: Soft, nontender, nondistended, positive bowel sounds x4 Extremities: +2 pulses bilaterally radialis/ dorsalis pedis, no cyanosis, no edema Neuro: Awake alert oriented x3 Psych: Normal mood and affect G/U: No Leblanc Skin: no rashes, warm and dry Lymphatic: no cervical or axillary lymphadenopathy Results & Data Results & Data ([facility]) Vital Signs (Past 12 Hours) Vital Signs Temp Pulse Pulse Resp BP Pulse Ox O2 Del Method 04/28/22 07:46 36.4 C L 84 16 168/78 H 96 Nasal Cannula 04/28/22 07:34 94 H 18 94 Nasal Cannula 04/28/22 03:20 101 H 20 94 04/27/22 22:50 106 H 20 96 O2 Flow Rate 04/28/22 07:46 1 04/28/22 07:34 2 04/28/22 03:20 1 04/27/22 22:50 1 Laboratory Results 04/28/22 06:49 04/28/22 06:49 PG Care Time/CCT Total # of Minutes Spent Total Time Spent with Patient: Total time spent is greater than 50% in coordination of care (as documented) at patient's floor/unit and/or counseling patient: Coding Level of Care Code 46047 Subseq Hosp Care Lvl 2 Diagnoses Acute exacerbation of chronic obstructive airways disease J44.1 Acute dyspnea R06.00 Acute and chronic respiratory failure with hypoxia J96.21
[2022-04-28 13:18] LABS: Base Excess ABG 6.8 mEq/L (-9-1.8); HCO3 ABG 31 mmol/L (19-24); Oxygen Saturation ABG 95.9 % (90-95); PCO2 ABG 43 mmHg (35-46); PO2 ABG 106 mmHg (80-95); pH ABG 7.47 (7.35-7.45)
[2022-04-28 13:25] LABS: Allen Test Pos (Pos)
--- NOTE | 2022-04-28 15:17 | Hospitalist Progress Note ---
Date of Service April 28, 2022 Assessment & Plan (1) COPD (chronic obstructive pulmonary disease): (2) Acute exacerbation of chronic obstructive airways disease: Plan: Hx of severe COPD last hospitalization in January 2022 Since then did not follow up w/ pulmonary medicine Pro-Orn is 0.05 Plan; Appreciate pulmonary recommendation. Roflumilast to 250 mcg once a day added as per pulmonary recommendation. It is to be given once a day for 4 weeks followed by 500 mcg daily on discharge. Breo discontinued. Continue on nebulized budesonide and Perforomist added as well. Incruse added as well. --Solu-Medrol increased to 40 mg IV 8 hourly. Azithromycin dose increased to 250 mg daily. -Titrate oxygen to maintain saturation at 88-92 pecent. -ABG ordered and nocturnal O2 monitor ordered to see if patient qualifies for BiPAP. (3) Chronic respiratory failure with hypoxia: Plan: Secondary to COPD (4) HTN (hypertension): Plan: Blood pressure continues to be high on home losartan. Nifedipine 60 mg once daily added. -monitor BP Code: DNR/DNI - discussed w/ the pt at the bedside. She would like bipap if she needed it. Dispocontinued to have significant wheezing and reports shortness of breath at rest. We will see patient's response on current regimen . Nocturnal oxygen evaluation and ABG ordered to see if patient qualifies for BiPAP. Admission and Anticipated Discharge Date Admission Date: April 24, 2022 Subjective Patient seen and examined at bedside. She is lying on the bed comfortably; continues to feel short of breath at ambulation. Review of Systems Review of Systems: All systems reviewed & are unremarkable except as noted in Subjective Physical Exam Physical Exam: Constitutional: WD/WN, vitals as above, NAD, sitting up in bed, pleasant, conversing easily Neck: trachea midline, no thyromegaly normal visual inspection Respiratory: Bilateral wheeze present; decreased compared to presentation. Cardiovascular: RRR, no murmur, no edema Vessels: no JVD or carotid bruit Chest: normal inspection of chest Abdomen: normal bowel sounds, soft, nontender, no hepatosplenomegaly Musculoskeletal: no cyanosis or clubbing, extremities motor strength 5/5 Skin: no rashes, warm and dry normal turgor Neurologic: PERRL, EOMI, accommodation nl, no face palsy, no dysarthria CN's II- XI intact bilaterally and moves all extremities Psychiatric: A+Ox3, euthymic affect Lymphatic: no cervical or axillary lymphadenopathy : deferred Results & Data Results & Data ([facility]) Vital Signs (Past 12 Hours) Vital Signs Temp Pulse Pulse Resp BP Pulse Ox O2 Del Method 04/28/22 13:36 96 H 20 90 04/28/22 08:00 Nasal Cannula 04/28/22 07:46 36.4 C L 84 16 168/78 H 96 Nasal Cannula 04/28/22 07:34 94 H 18 94 Nasal Cannula 04/28/22 03:20 101 H 20 94 O2 Flow Rate 04/28/22 13:36 2 04/28/22 08:00 2.5 04/28/22 07:46 1 04/28/22 07:34 2 04/28/22 03:20 1 Laboratory Results Laboratory Results WBC 12.54 K/ul (4.8-10.8) H 04/28/22 06:49 RBC 4.27 M/uL (3.93-5.22) 04/28/22 06:49 Hgb 13.3 g/dl (12.0-16.0) 04/28/22 06:49 Hct 39.6 % (34.1-44.9) 04/28/22 06:49 MCV 92.7 fL (80.0-100.0) 04/28/22 06:49 MCH 31.1 pg (25.0-34.0) 04/28/22 06:49 MCHC 33.6 g/dL (32.0-36.0) 04/28/22 06:49 RDW Std Deviation 43.9 fL (36.4-46.3) 04/28/22 06:49 RDW Coeff of Carl 12.9 % (11.5-14.5) 04/28/22 06:49 Plt Count 331 K/uL (130-400) 04/28/22 06:49 MPV 9.8 fL (9.4-12.3) 04/28/22 06:49 Immature Gran % (Auto) 0.4 % 04/28/22 06:49 Neut % (Auto) 80.6 % 04/28/22 06:49 Lymph % (Auto) 12.8 % 04/28/22 06:49 [place] % (Auto) 5.9 % 04/28/22 06:49 Eos % (Auto) 0.1 % 04/28/22 06:49 Baso % (Auto) 0.2 % 04/28/22 06:49 Neut # (Auto) 10.11 K/uL (1.4-6.5) H 04/28/22 06:49 Lymph # (Auto) 1.61 K/uL (1.2-3.4) 04/28/22 06:49 [place] # (Auto) 0.74 K/uL (0.24-0.82) 04/28/22 06:49 Eos # (Auto) 0.01 K/uL (0-0.50) 04/28/22 06:49 Baso # (Auto) 0.02 K/uL (0-0.2) 04/28/22 06:49 Immature Gran # (Auto) 0.05 K/uL (0.00-0.02) H 04/28/22 06:49 PT 10.4 Seconds (9.0-12.0) 04/24/22 09:00 INR 1.0 (0.9-1.1) 04/24/22 09:00 APTT 24.0 Seconds (21.0-31.0) 04/24/22 09:00 PTT Ratio 0.9 04/24/22 09:00 ABG pH 7.47 (7.35-7.45) H 04/28/22 13:00 ABG pCO2 43 mmHg (35-46) 04/28/22 13:00 ABG pO2 106 mmHg (80-95) H 04/28/22 13:00 ABG HCO3 31 mmol/L (19-24) H 04/28/22 13:00 ABG O2 Saturation 95.9 % (90-95) H 04/28/22 13:00 ABG Base Excess 6.8 mEq/L (-9-1.8) H 04/28/22 13:00 Saroj Test Pos (Pos) 04/28/22 13:00 VBG pH 7.32 (7.36-7.41) L 04/24/22 09:36 VBG pCO2 62 mmHg (38-50) H 04/24/22 09:36 VBG pO2 40 mmHg 04/24/22 09:36 VBG HCO3 32 mmol/L 04/24/22 09:36 VBG O2 Saturation 64.5 % 04/24/22 09:36 VBG Base Excess 4.0 mEq/L 04/24/22 09:36 Oxygen Given 2.5 04/28/22 13:00 Sodium 137 mmol/L (136-145) 04/28/22 06:49 Potassium 3.8 mmol/L (3.5-5.1) 04/28/22 06:49 Chloride 100 mmol/L (98-107) 04/28/22 06:49 Carbon Dioxide 33 mmol/L (21-32) H 04/28/22 06:49 Anion Gap 4 (3-11) 04/28/22 06:49 BUN 15 mg/dl (6-23) 04/28/22 06:49 Creatinine 0.63 mg/dl (0.6-1.2) 04/28/22 06:49 Est Cr Clr Drug Dosing 84.5 ml/min 04/28/22 06:49 Est GFR ( Amer) 106.1 ml/min 04/28/22 06:49 Est GFR (Non-Af Amer) 91.5 ml/min 04/28/22 06:49 BUN/Creatinine Ratio 23.8 (10-20) H 04/28/22 06:49 Glucose 131 mg/dl (70-99(Fasting)) H 04/28/22 06:49 Calcium 8.9 mg/dl (8.5-10.1) 04/28/22 06:49 Phosphorus 3.6 mg/dl (2.5-4.9) 04/25/22 05:40 Magnesium 2.3 mg/dl (1.7-2.4) 04/25/22 05:40 Total Bilirubin 0.4 mg/dl (0.2-1.0) 04/24/22 09:00 AST 16 U/L (13-39) 04/24/22 09:00 ALT 15 U/L (7-52) 04/24/22 09:00 Alkaline Phosphatase 57 U/L (34-104) 04/24/22 09:00 Troponin I High Sens 4.9 pg/ml (0-14) 04/24/22 09:00 Total Protein 7.2 gm/dl (6.0-8.3) 04/24/22 09:00 Albumin 4.3 gm/dl (3.4-5.0) 04/24/22 09:00 Globulin 2.9 gm/dl (2.5-4.0) 04/24/22 09:00 Albumin/Globulin Ratio 1.5 (0.9-2) 04/24/22 09:00 Procalcitonin < 0.05 ng/ml (0-0.5) 04/25/22 05:40 Urine Color Yellow 04/24/22 10:01 Urine Appearance Clear (Clear) 04/24/22 10:01 Urine pH 6.5 (4.5-7.5) 04/24/22 10:01 Ur Specific [place] 1.006 (1.000-1.030) 04/24/22 10:01 Urine Protein Negative (Negative) 04/24/22 10:01 Urine Glucose (UA) Negative (Negative) 04/24/22 10:01 Urine Ketones Negative (Negative) 04/24/22 10:01 Urine Blood Negative (Negative) 04/24/22 10:01 Urine Nitrite Negative (Negative) 04/24/22 10:01 Urine Bilirubin Negative (Negative) 04/24/22 10:01 Urine Urobilinogen Negative (Negative) 04/24/22 10:01 Ur Leukocyte Esterase Negative (Negative) 04/24/22 10:01 SARS-CoV-2 (PCR) NEGATIVE (Negative) 04/24/22 09:00 Influenza Type A (PCR) Negative (Neg) 04/24/22 09:00 Influenza Type B (PCR) Negative (Neg) 04/24/22 09:00 RSV (RT-PCR) Negative (Neg) 04/24/22 09:00 Impressions Chest X-Ray 04/24/22 08:48 XR chest 1V portable HISTORY: Dyspnea COMPARISON: Chest 02/14/2022. FINDINGS: No pneumothorax. No pleural effusions. The cardiac silhouette remains borderline enlarged. There is mild bibasilar interstitial thickening. The upper lung zones appear clear. No evidence for pulmonary edema. There appears be mild emphysema. IMPRESSION: Mild bibasilar interstitial thickening which is similar to the prior study. This could be chronic or represent a low-grade interstitial pneumonitis. ACT 112: Negative or not required by law. Electronically signed by: Yunier Alves M.D. 04/24/2022 9:28 AM (1) COPD (chronic obstructive pulmonary disease) COPD type: unspecified COPD Qualified Code(s): J44.9 - Chronic obstructive pulmonary disease, unspecified
[2022-04-28] MEDS: NIFEdipine EXTENDED REL 30 MG TABCR PO SCH (16:08)
[2022-04-28] MEDS: MONTELUKAST SODIUM 10 MG TABLET PO SCH (20:43)
[2022-04-28] MEDS: DOXAZosin MESYLATE TAB 2 MG TAB PO SCH (20:43)
[2022-04-28] MEDS: LORazepam 0.5 MG TAB PO PRN (21:28)
[2022-04-29 07:09] LABS: Basophils # (auto) 0.01 K/uL (0-0.2); Basophils % (auto) 0.1 %; Eosinophils # (auto) 0.01 K/uL (0-0.50); Eosinophils % (auto) 0.1 %; Hematocrit (blood only) 40.8 % (34.1-44.9); Hemoglobin 13.7 g/dl (12.0-16.0); Immature Granulocytes # (auto) 0.03 K/uL (0.00-0.02); Immature Granulocytes % (auto) 0.4 %; Lymphocytes # (auto) 1.28 K/uL (1.2-3.4); Lymphocytes % (auto) 15.1 %; Mean Corpuscular Hemoglobin 31.1 pg (25.0-34.0); Mean Corpuscular Hgb Conc 33.6 g/dL (32.0-36.0); Mean Corpuscular Volume 92.5 fL (80.0-100.0); Mean Platelet Volume 9.8 fL (9.4-12.3); Monocytes # (auto) 0.61 K/uL (0.24-0.82); Monocytes % (auto) 7.2 %; Neutrophils # (auto) 6.52 K/uL (1.4-6.5); Neutrophils % (auto) 77.1 %; Platelet Count 332 K/uL (130-400); RDW Standard Deviation 44.3 fL (36.4-46.3); Red Blood Count 4.41 M/uL (3.93-5.22); White Blood Count 8.46 K/ul (4.8-10.8)
[2022-04-29] MEDS: FORMOTEROL 20 MCG/2 ML VIAL NEB SCH ×2 (07:14→19:40)
[2022-04-29] MEDS: BUDESONIDE 0.5 MG/2 ML VIAL (PULMICORT) INH SCH ×2 (07:14→19:39)
[2022-04-29 07:37] LABS: BUN Creatinine Ratio 31.5 (10-20); Calcium 8.7 mg/dl (8.5-10.1); Creatinine Clr Calc Pharmacy 98.6 ml/min; Est GFR (African American) 111.6 ml/min; Est GFR (Non-African American) 96.3 ml/min; Potassium 3.9 mmol/L (3.5-5.1)
[2022-04-29] MEDS: methylPREDNISolone 40 MG in SYRINGE 0 ML IV SCH (09:31)
[2022-04-29] MEDS: UMECLIDINIUM BROMIDE 62.5MCG/BLISTER 7 PUFFS/INHALER INH SCH (09:33)
[2022-04-29] MEDS: FEXOFENADINE HCL 180 MG TAB PO SCH (09:34)
[2022-04-29] MEDS: NICOTINE 14 MG/24 HR PATCH TD SCH (09:34)
[2022-04-29] MEDS: LOSARTAN POTASSIUM 50 MG TAB PO SCH (09:35)
[2022-04-29] MEDS: AZITHROMYCIN 250 MG TAB PO SCH (09:35)
[2022-04-29] MEDS: ADVANCED PROBIOTIC 1250 MG CAPSULE PO SCH (09:35)
[2022-04-29] MEDS: NIFEdipine EXTENDED REL 30 MG TABCR PO SCH (09:36)
[2022-04-29] MEDS: HEPARIN SOD 5,000 UNIT/0.5 ML VIAL SQ SCH ×2 (09:36→21:18)
[2022-04-29] MEDS: DOCUSATE SODIUM 100 MG CAP PO SCH ×2 (09:38→21:23)
--- NOTE | 2022-04-29 10:30 | Pulmonology Progress Note ---
Date of Service April 29, 2022 Assessment & Plan (1) Acute exacerbation of chronic obstructive airways disease: (2) Acute dyspnea: (3) Acute and chronic respiratory failure with hypoxia: Plan Impression: 71-year-old female with hypoxemic hypercarbic respiratory failure secondary to presumed obstructive lung disease (PFTs not available). She continues to experience exacerbation CT chest 02/12/2022ersonally reviewed: Centrilobular emphysema appreciated bilaterally Tree-in-bud opacities appreciated on the periphery in the left upper lobe as well as left lower lobe No mediastinal lymphadenopathy ABG 04/28/2022: pH 7.47/43/106 on 2 and half liters -- Acute on chronic hypoxic respiratory failure Likely secondary to COPD exacerbation Was taking budesonide nebulized twice a day along with Anoro. Also was on azithromycin 250 mg [id number]. QTC 442 04/24/22 Currently she is on Solu-Medrol, Incruse, budesonide nebulized and formoterol nebulized Patient does not qualify for AVAPS machine right now If she has spirometry or pulmonary function test done as an outpatient and she will likely qualify for AVAPS Addition of Roflumilast 250 MCG once a day for 4 weeks followed by 500 MCG daily on discharge -- Very severe COPD On Anoro inhaler and budesonide nebulized at home Currently on Brovana and budesonide along with Incruse Spirometry 04/29/2022: Very severe COPD, expiratory scooping of the flow volume loop FVC 1.61 L 53%, FEV1 0.60 L 26%, FEV1/FVC 37% --Abnormal chest CT Tree-in-bud opacities appreciated in left upper as well as left lower lobe on CAT scan done January 2022 Continue with antibiotic Repeat CAT scan July 2022 -- Ex-smoker [id number] smoking history Quit at the age of 70 Encouraged to continue abstinence from smoking Plan: Due to chronic respiratory failure consequent to COPD, patient now requires a noninvasive home ventilator. Bilevel therapy with and without a rate would be ineffective as patient requires a volume targeted mode. Ventilation is required to decrease work of breathing and improve pulmonary status. Interruption of ventilator support would lead to decline of health status. NIMV settings should be AVAPS-AE; Breath rate: auto; Inspiratory time:auto; Sigh: off; Tidal Volume: 350-450, PS min: 4-8 PS max: 12-16; EPAP min: 6-10; EPAP max: 10-16; AVAPS rate: 14 during sleep and as needed We will get case management involved Go down on Solu-Medrol to 40 mg daily Please note the above document was generated using voice recognition software. It may contain grammatical, syntax or spelling errors.Any formal questions or concerns about the content, text or information contained within the body of this dictation should be directly addressed to the provider for clarification. Admission and Anticipated Discharge Date Admission Date: April 24, 2022 Subjective Patient seen and examined at bedside. No acute distress, no adverse events overnight She was saturating 96 percent on 2 L nasal cannula. I went down to 1 L She says overall she is feeling the same. She does get short of breath on minimal exertion which is mostly huffing and puffing Denies any chest pain, no dizziness, no palpitation at that time. Review of Systems Review of Systems: All systems reviewed & are unremarkable except as noted in Subjective Physical Exam Physical Exam: Constitutional: No acute distress HEENT: EOMI, PERRLA, blind on the left eye Respiratory system: Decreased air entry bilaterally, no wheeze, no rhonchi, no crackles CVS: S1-S2 positive, no murmurs or gallops Abdomen: Soft, nontender, nondistended, positive bowel sounds x4 Extremities: +2 pulses bilaterally radialis/ dorsalis pedis, no cyanosis, no edema Neuro: Awake alert oriented x3 Psych: Normal mood and affect G/U: No Leblanc Skin: no rashes, warm and dry Lymphatic: no cervical or axillary lymphadenopathy Results & Data Results & Data ([facility]) Vital Signs (Past 12 Hours) Vital Signs Temp Pulse Pulse Resp BP Pulse Ox Pulse Ox 04/29/22 08:26 04/29/22 08:13 36.7 C 92 H 18 136/75 96 04/29/22 07:16 75 16 96 04/29/22 02:57 88 96 04/28/22 22:35 86 97 O2 Del Method O2 Del Method O2 Flow Rate O2 Flow Rate 04/29/22 08:26 Nasal Cannula 2 04/29/22 08:13 Nasal Cannula 2 04/29/22 07:16 Nasal Cannula 2 04/29/22 02:57 Nasal Cannula 2 04/28/22 22:35 Nasal Cannula 2 Laboratory Results 04/29/22 06:31 04/29/22 06:31 PG Care Time/CCT Total # of Minutes Spent Total Time Spent with Patient: Total time spent is greater than 50% in coordination of care (as documented) at patient's floor/unit and/or counseling patient: Coding Level of Care Code 71230 Subseq Hosp Care Lvl 2 Diagnoses Acute exacerbation of chronic obstructive airways disease J44.1 Acute dyspnea R06.00 Acute and chronic respiratory failure with hypoxia J96.21
--- NOTE | 2022-04-29 15:36 | Hospitalist Progress Note ---
Date of Service April 29, 2022 Assessment & Plan (1) COPD (chronic obstructive pulmonary disease): (2) Acute exacerbation of chronic obstructive airways disease: Plan: - Will need noninvasive home ventilator as per pulmonology. Setting as per pulmonology. Roflumilast to 250 mcg once a day added as per pulmonary recommendation. It is to be given once a day for 4 weeks followed by 500 mcg daily on discharge. Breo discontinued. Continue on nebulized budesonide and Perforomist added as well. Incruse added as well. --Currently on Solu-Medrol 40 mg. Azithromycin dose increased to 250 mg daily. - Titrate oxygen to maintain saturation at 88-92 pecent. (3) Chronic respiratory failure with hypoxia: Plan: Secondary to COPD (4) HTN (hypertension): Plan: Blood pressure continues to be high on home losartan. Nifedipine 60 mg once daily added. Code: DNR/DNI - discussed w/ the pt at the bedside. Dispopatient will need noninvasive home ventilator; rn field case manager on board. Admission and Anticipated Discharge Date Admission Date: April 24, 2022 Subjective Patient seen and examined at bedside. She still complains of shortness of breath on ambulation. Spirometry done which showed severe COPD. Nocturnal pulse oximetry completed. Review of Systems Review of Systems: All systems reviewed & are unremarkable except as noted in Subjective Physical Exam Physical Exam: Constitutional: WD/WN, vitals as above, NAD, sitting up in bed, pleasant, conversing easily Neck: trachea midline, no thyromegaly normal visual inspection Respiratory: Bilateral wheeze present; Cardiovascular: RRR, no murmur, no edema Vessels: no JVD or carotid bruit Chest: normal inspection of chest Abdomen: normal bowel sounds, soft, nontender, no hepatosplenomegaly Musculoskeletal: no cyanosis or clubbing, extremities motor strength 5/5 Skin: no rashes, warm and dry normal turgor Neurologic: PERRL, EOMI, accommodation nl, no face palsy, no dysarthria CN's II- XI intact bilaterally and moves all extremities Psychiatric: A+Ox3, euthymic affect Lymphatic: no cervical or axillary lymphadenopathy : deferred Results & Data Results & Data ([facility]) Vital Signs (Past 12 Hours) Vital Signs Temp Pulse Resp BP Pulse Ox O2 Del Method O2 Flow Rate 04/29/22 08:26 Nasal Cannula 2 04/29/22 08:13 36.7 C 92 H 18 136/75 96 Nasal Cannula 2 04/29/22 07:16 75 16 96 Nasal Cannula 2 (1) COPD (chronic obstructive pulmonary disease) COPD type: COPD with acute exacerbation Qualified Code(s): J44.1 - Chronic obstructive pulmonary disease with (acute) exacerbation
[2022-04-29] MEDS: MONTELUKAST SODIUM 10 MG TABLET PO SCH (21:20)
[2022-04-29] MEDS: DOXAZosin MESYLATE TAB 2 MG TAB PO SCH (21:20)
[2022-04-29] MEDS: LORazepam 0.5 MG TAB PO PRN (21:20)
[2022-04-30 06:32] LABS: Basophils # (auto) 0.02 K/uL (0-0.2); Basophils % (auto) 0.2 %; Eosinophils # (auto) 0.12 K/uL (0-0.50); Eosinophils % (auto) 1.5 %; Hemoglobin 13.7 g/dl (12.0-16.0); Immature Granulocytes # (auto) 0.03 K/uL (0.00-0.02); Immature Granulocytes % (auto) 0.4 %; Lymphocytes # (auto) 2.16 K/uL (1.2-3.4); Lymphocytes % (auto) 26.5 %; Mean Corpuscular Hgb Conc 33.4 g/dL (32.0-36.0); Mean Corpuscular Volume 92.8 fL (80.0-100.0); Mean Platelet Volume 9.8 fL (9.4-12.3); Monocytes # (auto) 0.68 K/uL (0.24-0.82); Monocytes % (auto) 8.4 %; Neutrophils # (auto) 5.13 K/uL (1.4-6.5); Platelet Count 316 K/uL (130-400); RDW Coefficient of Variation 13.1 % (11.5-14.5); RDW Standard Deviation 44.6 fL (36.4-46.3); Red Blood Count 4.42 M/uL (3.93-5.22); White Blood Count 8.14 K/ul (4.8-10.8)
[2022-04-30 06:55] LABS: BUN Creatinine Ratio 28.1 (10-20); Calcium 8.6 mg/dl (8.5-10.1); Creatinine Clr Calc Pharmacy 83.2 ml/min; Est GFR (African American) 105.5 ml/min; Potassium 3.5 mmol/L (3.5-5.1)
[2022-04-30] MEDS: FORMOTEROL 20 MCG/2 ML VIAL NEB SCH ×2 (07:22→19:11)
[2022-04-30] MEDS: BUDESONIDE 0.5 MG/2 ML VIAL (PULMICORT) INH SCH ×2 (07:22→19:11)
[2022-04-30] MEDS: NICOTINE 14 MG/24 HR PATCH TD SCH (08:48)
[2022-04-30] MEDS: UMECLIDINIUM BROMIDE 62.5MCG/BLISTER 7 PUFFS/INHALER INH SCH (08:50)
[2022-04-30] MEDS: methylPREDNISolone 40 MG in SYRINGE 0 ML IV SCH (08:50)
[2022-04-30] MEDS: HEPARIN SOD 5,000 UNIT/0.5 ML VIAL SQ SCH ×2 (08:52→20:10)
[2022-04-30] MEDS: ADVANCED PROBIOTIC 1250 MG CAPSULE PO SCH (08:52)
[2022-04-30] MEDS: LOSARTAN POTASSIUM 50 MG TAB PO SCH (08:53)
[2022-04-30] MEDS: AZITHROMYCIN 250 MG TAB PO SCH (08:53)
[2022-04-30] MEDS: FEXOFENADINE HCL 180 MG TAB PO SCH (08:54)
[2022-04-30] MEDS: NIFEdipine EXTENDED REL 30 MG TABCR PO SCH (08:54)
[2022-04-30] MEDS: DOCUSATE SODIUM 100 MG CAP PO SCH ×2 (08:56→20:13)
--- NOTE | 2022-04-30 13:09 | Pulmonology Progress Note ---
Date of Service April 30, 2022 Assessment & Plan (1) Acute exacerbation of chronic obstructive airways disease: (2) Acute dyspnea: (3) Acute and chronic respiratory failure with hypoxia: Plan Impression: 71-year-old female with hypoxemic hypercarbic respiratory failure secondary to presumed obstructive lung disease (PFTs not available). She continues to experience exacerbation CT chest 02/12/2022ersonally reviewed: Centrilobular emphysema appreciated bilaterally Tree-in-bud opacities appreciated on the periphery in the left upper lobe as well as left lower lobe No mediastinal lymphadenopathy ABG 04/28/2022: pH 7.47/43/106 on 2 and half liters -- Acute on chronic hypoxic respiratory failure Likely secondary to COPD exacerbation Was taking budesonide nebulized twice a day along with Anoro. Also was on azithromycin 250 mg [id number]-Avxsulatd-Pibeki. QTC 442 04/24/22 Currently she is on Solu-Medrol, Incruse, budesonide nebulized and formoterol nebulized Patient does not qualify for AVAPS machine right now If she has spirometry or pulmonary function test done as an outpatient and she will likely qualify for AVAPS Addition of Roflumilast 250 MCG once a day for 4 weeks followed by 500 MCG daily on discharge -- Very severe COPD On Anoro inhaler and budesonide nebulized at home Currently on Brovana and budesonide along with Incruse Patient will benefit from AVAPS machine Spirometry 04/29/2022: Very severe COPD, expiratory scooping of the flow volume loop FVC 1.61 L 53%, FEV1 0.60 L 26%, FEV1/FVC 37% --Abnormal chest CT Tree-in-bud opacities appreciated in left upper as well as left lower lobe on CAT scan done January 2022 Continue with antibiotic Repeat CAT scan July 2022 -- Ex-smoker [id number] smoking history Quit at the age of 70 Encouraged to continue abstinence from smoking Plan: assistant front desk manager working on getting the patient trilogy machine Continue with Solu-Medrol and duo nebs Case was discussed with Please note the above document was generated using voice recognition software. It may contain grammatical, syntax or spelling errors.Any formal questions or concerns about the content, text or information contained within the body of this dictation should be directly addressed to the provider for clarification. Admission and Anticipated Discharge Date Admission Date: April 24, 2022 Subjective Patient seen and examined at bedside. No acute distress, no adverse events overnight Patient was on 2 L nasal cannula saturating 96% on room air at rest She says she feels the same Denies any chest pain Did use BiPAP overnight Not coughing up any phlegm, no hemoptysis Review of Systems Review of Systems: All systems reviewed & are unremarkable except as noted in Subjective Physical Exam Physical Exam: Constitutional: No acute distress HEENT: EOMI, PERRLA, blind on the left eye Respiratory system: Decreased air entry bilaterally, no rhonchi, no crackles, minimal expiratory wheeze bilaterally CVS: S1-S2 positive, no murmurs or gallops Abdomen: Soft, nontender, nondistended, positive bowel sounds x4 Extremities: +2 pulses bilaterally radialis/ dorsalis pedis, no cyanosis, no edema Neuro: Awake alert oriented x3 Psych: Normal mood and affect G/U: No Leblanc Skin: no rashes, warm and dry Lymphatic: no cervical or axillary lymphadenopathy Results & Data Results & Data ([facility]) Vital Signs (Past 12 Hours) Vital Signs Temp Pulse Pulse Resp BP Pulse Ox O2 Del Method 04/30/22 07:23 79 18 96 Nasal Cannula 04/30/22 07:00 Nasal Cannula 04/30/22 06:56 36.8 C 91 H 18 139/71 95 Nasal Cannula 04/30/22 03:29 73 16 96 O2 Flow Rate 04/30/22 07:23 2 04/30/22 07:00 2 04/30/22 06:56 2 04/30/22 03:29 2 Laboratory Results 04/30/22 05:53 04/30/22 05:53 PG Care Time/CCT Total # of Minutes Spent Total Time Spent with Patient: Total time spent is greater than 50% in coordination of care (as documented) at patient's floor/unit and/or counseling patient: Coding Level of Care Code 50020 Subseq Hosp Care Lvl 2 Diagnoses Acute exacerbation of chronic obstructive airways disease J44.1 Acute dyspnea R06.00 Acute and chronic respiratory failure with hypoxia J96.21
[2022-04-30] MEDS: ALBUT/IPRATROP 3MG/0.5MG NEB 3 ML VIAL NEB PRN (14:40)
--- NOTE | 2022-04-30 18:59 | Hospitalist Progress Note ---
Date of Service April 30, 2022 Assessment & Plan (1) COPD (chronic obstructive pulmonary disease): (2) Acute exacerbation of chronic obstructive airways disease: Plan: Acute COPD exacerbation Acute on chronic respiratory failure with hypoxia --CXR:Mild bibasilar interstitial thickening which is similar to the prior study. This could be chronic or represent a low-grade interstitial pneumonitis. Currently on budesonide, Perforomist, Incruse Started on Roflumilast--250 mcg once a day for 4 weeks and followed by 500 mcg daily on discharge. Breo discontinued Continue supplemental oxygen Also on Solu-Medrol Noninvasive home ventilator to be arranged if insurance approves Appreciate pulmonology input Needs follow-up with pulmonology upon discharge Continue Azithromycin Titrate oxygen to maintain saturation at 88-92% (3) Chronic respiratory failure with hypoxia: Plan: Secondary to COPD (4) HTN (hypertension): Plan: Continue losartan, added Nifedipine Monitor DVT Px: Heparin SQ Code Status: DNR/DNI Admission and Anticipated Discharge Date Admission Date: April 24, 2022 Subjective Patient is seen and examined at bedside. Dyspnea improved when compared to yesterday No new complaints Discussed with paper ruler today Denies any chest pain, dizziness, nausea, abdominal Offers no other complaints Review of Systems Review of Systems: All systems reviewed & are unremarkable except as noted in Subjective Physical Exam Physical Exam: Physical Exam: Vitals signs as noted above General Appearance:Moderately built and nourished, no apparent distress Head: normocephalic, Atraumatic Eyes: normal inspection, EOMI, Left eye blind Neck: supple, Trachea midline Respiratory/Chest: Decreased breath sounds, scattered wheezes, No accessory muscle use Cardiovascular: S1, S2, No murmur Abdomen/GI:Soft, Non tender, Bowel sounds present Extremities/Musculoskeletal:normal inspection, no edema Neurologic/Psych:AAOX3, grossly no focal neurological deficits Skin: normal color, warm Results & Data Results & Data ([facility]) Vital Signs (Past 12 Hours) Vital Signs Temp Pulse Pulse Resp BP Pulse Ox O2 Del Method 04/30/22 15:03 36.7 C 109 H 18 123/57 L 94 Nasal Cannula 04/30/22 14:41 108 H 18 94 Nasal Cannula 04/30/22 07:23 79 18 96 Nasal Cannula 04/30/22 07:00 Nasal Cannula O2 Flow Rate 04/30/22 15:03 2 04/30/22 14:41 2 04/30/22 07:23 2 04/30/22 07:00 2 Laboratory Results Short CBC 04/30/22 Range/Units 05:53 WBC 8.14 (4.8-10.8) K/ul Hgb 13.7 (12.0-16.0) g/dl Hct 41.0 (34.1-44.9) % Plt Count 316 (130-400) K/uL BMP 04/30/22 05:53 Sodium 137 Potassium 3.5 Chloride 100 Carbon Dioxide 32 BUN 18 Creatinine 0.64 Glucose 94 Calcium 8.6 (1) COPD (chronic obstructive pulmonary disease) COPD type: COPD with acute exacerbation Qualified Code(s): J44.1 - Chronic obstructive pulmonary disease with (acute) exacerbation
[2022-04-30] MEDS: ROFLUMILAST 500 MCG TAB PO SCH (20:10)
[2022-04-30] MEDS: DOXAZosin MESYLATE TAB 2 MG TAB PO SCH (20:10)
[2022-04-30] MEDS: MONTELUKAST SODIUM 10 MG TABLET PO SCH (20:11)
[2022-04-30] MEDS: LORazepam 0.5 MG TAB PO PRN (21:42)
[2022-05-01] MEDS: BUDESONIDE 0.5 MG/2 ML VIAL (PULMICORT) INH SCH (07:15)
[2022-05-01] MEDS: FORMOTEROL 20 MCG/2 ML VIAL NEB SCH (07:15)
--- NOTE | 2022-05-01 07:29 | Pulmonology Progress Note ---
Date of Service May 01, 2022 Assessment & Plan (1) Acute exacerbation of chronic obstructive airways disease: (2) Acute dyspnea: (3) Acute and chronic respiratory failure with hypoxia: Plan Impression: 71-year-old female with hypoxemic hypercarbic respiratory failure secondary to presumed obstructive lung disease (PFTs not available). She continues to experience exacerbation CT chest 02/12/2022ersonally reviewed: Centrilobular emphysema appreciated bilaterally Tree-in-bud opacities appreciated on the periphery in the left upper lobe as well as left lower lobe No mediastinal lymphadenopathy ABG 04/28/2022: pH 7.47/43/106 on 2 and half liters -- Acute on chronic hypoxic respiratory failure Likely secondary to COPD exacerbation Was taking budesonide nebulized twice a day along with Anoro. Also was on azithromycin 250 mg Lvihux-Mqvbtdgfp-Lrudrg. QTC 442 04/24/22 Currently she is on Solu-Medrol, Incruse, budesonide nebulized and formoterol nebulized Patient does not qualify for AVAPS machine right now If she has spirometry or pulmonary function test done as an outpatient and she will likely qualify for AVAPS -- Very severe COPD On Anoro inhaler and budesonide nebulized at home Currently on Performist and budesonide along with Incruse Patient will benefit from AVAPS machine Spirometry 04/29/2022: Very severe COPD, expiratory scooping of the flow volume loop FVC 1.61 L 53%, FEV1 0.60 L 26%, FEV1/FVC 37% --Abnormal chest CT Tree-in-bud opacities appreciated in left upper as well as left lower lobe on CAT scan done January 2022 Continue with antibiotic Repeat CAT scan July 2022 -- Ex-smoker [id number] smoking history Quit at the age of 70 Encouraged to continue abstinence from smoking Plan: Can start tapering prednisone as of tomorrow 40 mg for 3 days followed by 20 mg for 3 days Patient needs to be on LABA,LAMA and ICS inhaler on a daily basis along with as needed DuoNebs. Azithromycin 250 mg Umuzrf-Wanjbosym-Zrutdd Hold back on Roflumilast given that she complained of insomnia last night and the only medication added was Roflumilast. Outpatient pulmonary can take care of it Patient will benefit from trilogy machine. regional manager is already working on it Case was discussed with Jhony Tavares Please note the above document was generated using voice recognition software. It may contain grammatical, syntax or spelling errors.Any formal questions or concerns about the content, text or information contained within the body of this dictation should be directly addressed to the provider for clarification. Admission and Anticipated Discharge Date Admission Date: April 24, 2022 Subjective Patient seen and examined at bedside. No acute distress, no adverse events overnight. She was started on Roflumilast yesterday and she complained of insomnia. Unsure if it is related to Roflumilast Fair appetite Overall breathing is the same. Denies any chest pain, not coughing up any phlegm. She was saturating 97% on 2 L at the time of examination. Review of Systems Review of Systems: All systems reviewed & are unremarkable except as noted in Subjective Physical Exam Physical Exam: Constitutional: No acute distress HEENT: EOMI, PERRLA, blind on the left eye Respiratory system: Decreased air entry bilaterally, no rhonchi, no crackles, minimal expiratory wheeze, better than yesterday CVS: S1-S2 positive, no murmurs or gallops Abdomen: Soft, nontender, nondistended, positive bowel sounds x4 Extremities: +2 pulses bilaterally radialis/ dorsalis pedis, no cyanosis, no edema Neuro: Awake alert oriented x3 Psych: Normal mood and affect G/U: No Leblanc Skin: no rashes, warm and dry Lymphatic: no cervical or axillary lymphadenopathy Results & Data Results & Data ([facility]) Vital Signs (Past 12 Hours) Vital Signs Temp Pulse Pulse Resp BP Pulse Ox O2 Del Method 05/01/22 07:15 94 H 18 94 Nasal Cannula 05/01/22 03:51 22 97 04/30/22 22:40 107 H 25 H 96 04/30/22 22:18 36.8 C 86 18 145/69 H 96 Room Air 04/30/22 19:46 Nasal Cannula O2 Flow Rate 05/01/22 07:15 2 05/01/22 03:51 2 04/30/22 22:40 2 04/30/22 22:18 04/30/22 19:46 2 Laboratory Results 04/30/22 05:53 05/01/22 06:44 PG Care Time/CCT Total # of Minutes Spent Total Time Spent with Patient: Total time spent is greater than 50% in coordination of care (as documented) at patient's floor/unit and/or counseling patient: Coding Level of Care Code 33451 Subseq Hosp Care Lvl 2 Diagnoses Acute exacerbation of chronic obstructive airways disease J44.1 Acute dyspnea R06.00 Acute and chronic respiratory failure with hypoxia J96.21
[2022-05-01 07:47] LABS: BUN Creatinine Ratio 26.8 (10-20); Calcium 8.5 mg/dl (8.5-10.1); Creatinine Clr Calc Pharmacy 95.1 ml/min; Est GFR (African American) 110.3 ml/min; Est GFR (Non-African American) 95.1 ml/min; Magnesium 2.1 mg/dl (1.7-2.4); Potassium 3.7 mmol/L (3.5-5.1)
[2022-05-01] MEDS: UMECLIDINIUM BROMIDE 62.5MCG/BLISTER 7 PUFFS/INHALER INH SCH (08:23)
[2022-05-01] MEDS: NICOTINE 14 MG/24 HR PATCH TD SCH (08:24)
[2022-05-01] MEDS: methylPREDNISolone 40 MG in SYRINGE 0 ML IV SCH (08:25)
[2022-05-01] MEDS: FEXOFENADINE HCL 180 MG TAB PO SCH (08:27)
[2022-05-01] MEDS: ROFLUMILAST 500 MCG TAB PO SCH (08:27)
[2022-05-01] MEDS: NIFEdipine EXTENDED REL 30 MG TABCR PO SCH (08:28)
[2022-05-01] MEDS: HEPARIN SOD 5,000 UNIT/0.5 ML VIAL SQ SCH (08:28)
[2022-05-01] MEDS: LOSARTAN POTASSIUM 50 MG TAB PO SCH (08:28)
[2022-05-01] MEDS: AZITHROMYCIN 250 MG TAB PO SCH (08:29)
[2022-05-01] MEDS: ADVANCED PROBIOTIC 1250 MG CAPSULE PO SCH (08:29)
[2022-05-01] MEDS: DOCUSATE SODIUM 100 MG CAP PO SCH (08:32)
--- NOTE | 2022-05-01 16:05 | Discharge Summary ---
Date of Service May 01, 2022 Admission HPI Per Admitting Provider Pt is 71-year-old F with severe COPD, asthma, chronic hypoxic respiratory failure (on 2.5L at baseline), HTN, prior tobacco who presents with increased shortness of breath for the past week. Patient was most recently hospitalized here in January, at that time she was also seen by pulmonary medicine, required BiPAP on admission. She was supposed to follow-up with pulmonary medicine however patient states that she does not follow with her [facility] PCP or pulmonary doctor, only sees primary care provider at her facility, [facility]. She states that for the past week, her medications were not helping and she felt more short of breath. She developed occasional cough with clear/white sputum. Denies any fevers chills chest pain. Also denies any abdominal pain, nausea or vomiting. In the ED chest x-ray was obtained, and showed Mild bibasilar interstitial thickening which is similar to the prior study. She received 125 mg of Solu- Medrol, DuoNebs in the ED. Currently she is sitting up in bed, in no acute distress, answering questions appropriately, on 2.5 L of supplemental oxygen. Reports feeling slightly better. In the past she was also on hospice for a very short amount of time, however since then she recovered. Currently residing at [facility]. She is using budesonide neb twice a day, Anoro, she is on prednisone 10 mg daily, and chronic azithromycin 3 times a week.Previously had followed up with pulmonology at [facility], she has not been seen there in a while. She reports having difficulty getting follow-up appointments. Admission Exam Per Admitting Provider Constitutional: WD/WN, vitals as above Eyes: PERRL, conjunctivae normal, anicteric sclerae (L eye blindness) ENMT: external ear and nose normal, oropharynx normal Neck: trachea midline, no thyromegaly Respiratory: Auscultation: + rhonchi (minimal) and + wheezes (minimal); no crackles Cardiovascular: Rate/Rhythm: + tachycardic Chest (Breasts): Chest: normal inspection of chest Gastrointestinal (Abdomen): normal bowel sounds, soft, nontender, no hepatosplenomegaly Musculoskeletal: no cyanosis or clubbing, extremities motor strength 5/5 Skin: no rashes, warm and dry Neurologic: PERRL, EOMI, accommodation nl, no face palsy, no dysarthria (except for L eye blindness) Psychiatric: A+Ox3, euthymic affect Genitourinary: no CVA tenderness Lymphatic: no lymphedema Principal Diagnosis COPD exacerbation Discharge Exam Gen: WD/WN, NAD, sitting in bedside chair, A&Ox3, anxious HEENT: Normocephalic, atraumatic, conjunctivae moist, sclerae anicteric, mucous membranes moist Lung: Decreased breath sounds, scattered wheezes throughout lung stinson Heart: Regular rate, regular rhythm, no murmurs, rubs, or gallops Abdomen: Soft, NT, ND +BS x 4 Extremities: no edema Skin: Warm, no rash Discharge Data Allergies Allergy/AdvReac Type Severity Reaction Status Date / Time kiwi Allergy Unknown Anaphylaxis Verified 04/24/22 10:08 Penicillins Allergy Unknown Anaphylaxis Verified 04/24/22 10:08 moxifloxacin Allergy dyspnea Verified 04/24/22 10:08 amlodipine AdvReac Unknown Muscle Pain Verified 04/24/22 10:08 furosemide [From Lasix] AdvReac Cramping Verified 04/24/22 10:08 of the Muscles lisinopril AdvReac Unknown Verified 04/24/22 10:08 propylene glycol AdvReac Rash Verified 04/24/22 10:08 [id number] Reductase AdvReac Muscle Pain Verified 04/24/22 10:08 Inhibitor Consultations 04/24/22 11:22 ED Decision to Admit Stat 04/27/22 08:52 Consult Pulmonology Routine Hospital Course (1) COPD (chronic obstructive pulmonary disease): (2) Acute exacerbation of chronic obstructive airways disease: (3) Chronic respiratory failure with hypoxia: (4) HTN (hypertension): Plan This is a 71-year-old F with severe COPD, asthma, chronic hypoxic respiratory failure (on 2.5L at baseline), HTN, prior tobacco who presents with increased shortness of breath for the past week and was found to have an acute exacerbation of severe COPD. CXR with mild bibasilar interstitial thickening which is similar to the prior study. This could be chronic or represent a low- grade interstitial pneumonitis. Evaluated by pulmonology and started on Perforomist and Incruse. Anoro Ellipta was discontinued. Continue budesonide, azithromycin, duo nebs and Combivent inhaler as previously instructed. Completing prednisone taper for the next 6 days. Approved for noninvasive home ventilator. Continue to titrate supplemental oxygen to maintain saturation at 88 to 92%. Of note, Roflumilast was trialed during admission but thought to possibly be contributing to insomnia and discontinued for now. Patient to establish with [facility] pulmonology as an outpatient as well as primary care for further close follow-up. Patient hemodynamically stable at time of discharge. Total Time Total Time Spent Total Time Spent (In Minutes): 40 Discharge Plan Discharge Items Patient Disposition: Personal Group Home Reason For Visit: COPD EXACERBATION Discharge Diagnosis: COPD exacerbation Activity: Resume your previous activity Non-emergency contact: Primary Care Provider Call non-emergency contact if: you have any medication questions Follow-up/Referrals: Blanche Martins DO [Outside Practitioners] - 05/08/22 8:00 am ([facility] [facility] [place] [address] Dr Blanche Martins) [facility] [Primary Care Provider] - Diet: Heart Healthy Addtl Attending Provider Instructions: You were admitted for acute exacerbation of severe COPD. Per pulmonology, started on Perforomist and Incruse. Anoro Ellipta was di scontinued. Continue budesonide, azithromycin, duo nebs and Combivent inhaler per medication list below. Complete prednisone taper per instructions for the next 6 days. Approved for noninvasive home ventilator (Trilogy machine). Titrate supplemental oxygen to maintain saturation at 88-92%. RECOMMENDATIONS FOR FOLLOW-UP: Please follow up with new primary care provider at [address] Referral placed for [facility] pulmonology. OTHER INSTRUCTIONS: Seek medical attention if you have: * temperature above 101 * chest pain or trouble breathing * abdominal pain, nausea, vomiting * diarrhea, dark stools or bloody stools * any unanswered questions or concerns Call 911 if symptoms are severe. Please take good care of yourself. Call if you have any questions or problems. You can reach a [facility] hospitalist on duty at [facility] 24 hours a day by calling [phone]. Anusha Booker PA-C [facility] Hospitalist Pending Studies at Discharge: No Stand-Alone Forms: My [facility], Smoking Cessation Skilled Items Patient informed of condition?: Yes DNR: Yes Discharge Level of Care: Other Communicable Disease: No Discharge Prognosis: Stable Lines: None Urinary Catheter: No Medications and DC Order Prescriptions: New formoterol fumarate [Perforomist] 20 mcg/2 mL Solution For Nebulization 20 mcg NEB BIDR 30 Days Qty: 120 0RF Incruse Ellipta 62.5 mcg/actuation Blister With Device 1 inh inhalation DAILY Qty: 30 0RF prednisone 10 mg tablet 10 mg PO DAILY Qty: 18 0RF Rx Instructions: 40 mg (4 tablets) for 3 days followed by 20 mg (2 tablets) for 3 days nifedipine [Procardia XL] 30 mg Tablet Extended Release 24hr 30 mg PO QAM Qty: 30 0RF Continued nicotine 14 mg/24 hr patch 24 hour 14 mg transdermal DAILY azithromycin 250 mg tablet 250 mg PO MOWEFR alprazolam 0.5 mg tablet 0.5 mg PO HS docusate sodium [Colace] 100 mg capsule 100 mg PO BID montelukast 10 mg tablet 10 mg PO HS albuterol sulfate [Ventolin HFA] 90 mcg/actuation HFA aerosol inhaler 2 puff INHALATION QID PRN (Reason: Shortness Of Breath Or Wheezing) losartan 100 mg tablet 100 mg PO DAILY doxazosin 2 mg tablet 2 mg PO PM budesonide 1 mg/2 mL suspension for nebulization 1 mg inhalation BID Combivent Respimat 20-100 mcg/actuation mist 1 puff INHALATION Q4H PRN (Reason: Shortness Of Breath Or Wheezing) fexofenadine 180 mg Tablet 180 mg PO DAILY ipratropium-albuterol 0.5 mg-3 mg(2.5 mg base)/3 mL solution for nebulization 3 ml INHALATION QID PRN (Reason: sob, wheezing) Qty: 90 0RF Discontinued sennosides-docusate sodium [Senna Plus] 8.6-50 mg tablet 1 tab PO DAILY PRN (Reason: Constipation) Anoro Ellipta 62.5-25 mcg/actuation blister with device 1 inh inhalation DAILY Qty: 60 0RF prednisone 10 mg tablet See Rx Instructions .ROUTE .COMPLEX 8 Days Qty: 15 0RF Rx Instructions: 40 mg daily x 2 days, then 20 mg daily x 3 days, then 10 mg daily x 3 days, then stop Discharge Orders: Discharge Order (Routine); Ordered 05/01/22 Ordered By: Anusha Frances/Other Patient Handouts: Asthma and COPD Admission Data Admit Date/Time: 04/24/22 12:20 Attending Provider: Yazan Salas Admit Provider: Tj Sandoval [facility] Other Providers: Tj Sandoval ; Branden Guadarrama ; Anusha Booker Other Interventions: Discharge Summary Assessment (RN) Last Done: 05/01/22 16:42 Supervising Physician Co-Signing Physician Notes Patient is seen and examined at bedside. States cough much improved. Denies any significant dyspnea. No new complaints. On exam patient is moderately built and nourished, no apparent distress, normocephalic atraumatic, EOMI, decreased breath sounds, expiratory wheezes present, no accessory muscle use, S1-S2, no murmur, abdomen soft, nontender, normal bowel sounds, alert, awake, oriented, grossly no focal deficits. Continue management for acute COPD exacerbation as recommended by pulmonology. Plan to be discharged on steroid taper course. Needs follow-up with pulmonology upon discharge. Also being discharged on Perforomist, budesonide nebs. Incruse added as well. Anoro Ellipta discontinued. I personally reviewed the record. Patient is interviewed and examined at bedside. Patient's care is coordinated with Anusha Booker PA-C. Please refer to the documentation above for details of patient's presentation and for discussion of other issues.
[2022-05-01] MEDS: ALBUT/IPRATROP 3MG/0.5MG NEB 3 ML VIAL NEB PRN (16:23)
== END 2022-05-01 18:11 | disposition home or self-care (01) | DRG 189 ==
LOC: MERGE 08:36 → ED 08:36 → SUATTDRO 12:20 → EDINP 12:20 → 2W 17:54 → 3N 04-27 20:18 → 2W 04-27 20:32